=== PATIENT | male | born 1950 | race Native Hawaiian/Other Pacific Islander ===

== ENCOUNTER 2016-10-28 09:08 | Emergency (ER) | payer MEDICARE ==
[~2016-10-28] VITALS: Ht 152.4 cm; Wt 100.0 kg
[~2016-10-28 09:08] MED LIST: ALFU10TA2 PO; ATEN50TA PO; CARD240C6 PO; FINA5TAB2 PO; LISI40TA PO
[2016-10-28 09:09] VITALS: BP 224/106; PULSE 68; RESP 16; TEMP 98.8; O2SAT 97
[2016-10-28 09:31] VITALS: BP_SYST 199; BP_SYST 223; BP_DIAS 101; BP_DIAS 109; PULSE 85
[2016-10-28] MEDS ORDERED: DUTA1CAP2 PO (09:39)
[2016-10-28] MEDS ORDERED: TAMS0.4C4 PO (09:39)
[2016-10-28] MEDS ORDERED: cloNIDine HCL 0.2 MG TAB PO ONE (09:45)
--- NOTE | 2016-10-28 09:48 | PD ---
HPI Chief Complaint: Hypertension Time Seen by Provider: 09:29 Travel History International Travel<30 days: No Contact w/Intl Traveler<30days: No Traveled to known affect area: No History of Present Illness HPI This patient has history of hypertension. He says that his pressure is usually around 130s over 70s on his combination of lisinopril 40 daily and atenolol 50 daily. He is compliant with medication. He took them this morning at 7 AM. However over the last one week his pressures have been running high. 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 mejia. Blood pressure today on arrival was 224 systolic. He does not have any chest pain or headache. He feels well but is worried about this blood pressure. Symptoms severity is mild. No alleviating factors. Duration one week PFSH Past Medical History Cardiovascular Problems: Yes (dialated assending aorta) High Cholesterol: Yes Chest Pain: Yes (PALPATATIONS) Diminished Hearing: Yes (LEFT [place]) Genitourinary: Yes (ENLARGED PROSTATE) Hypertension: Yes Triglycerides - High: Yes Tetanus Vaccination: < 5 Years ?: Not Past Surgical History Ear Surgery: Yes (PERFORATED EAR DRUM) Social History Alcohol Use: No Tobacco Use: No Substance Use: No Allergies-Medications (Allergen,Severity, Reaction): Uncoded Allergies: STEROIDS (Adverse Reaction, Mild, HEARTBURN , 01/29/16) Reported Meds & Prescriptions Reported Meds & Active Scripts Active Reported Tamsulosin (Tamsulosin HCl) 0.4 Mg Cap 0.4 Mg PO BID Dutasteride 0.5 Mg Cap 0.5 Mg PO DAILY Atenolol 50 Mg Tab 50 Mg PO DAILY Lisinopril 40 Mg Tab 40 Mg PO DAILY Review of Systems General / Constitutional: No: Fever Eyes: No: Visual changes HENT: No: Headaches Cardiovascular: No: Chest Pain or Discomfort Respiratory: No: Shortness of Breath Gastrointestinal: No: Abdominal Pain Genitourinary: No: Dysuria Musculoskeletal: No: Pain Skin: No Rash Neurologic: No: Weakness Psychiatric: No: Depression Endocrine: No: Polydipsia Hematologic/Lymphatic: No: Easy Bruising Physical Exam Narrative GENERAL: Well-nourished, well-developed patient in no apparent distress. SKIN: Focused skin assessment reveals no rash and nodules. Skin is Warm and dry. HEAD: Atraumatic. Normocephalic. EYES: Pupils equal and round. No scleral icterus. No injection or drainage. ENT: No nasal bleeding or discharge. Mucous membranes pink and moist. NECK: Trachea midline. No JVD. CARDIOVASCULAR: Regular rate and rhythm. No murmur appreciated. RESPIRATORY: No accessory muscle use. Clear to auscultation. Breath sounds equal bilaterally. GASTROINTESTINAL: Abdomen soft, non-tender, nondistended. Hepatic and splenic margins not palpable. MUSCULOSKELETAL: No obvious deformities. No clubbing. No cyanosis. No edema. NEUROLOGICAL: Awake and alert. No obvious cranial nerve deficits. Motor grossly within normal limits. Normal speech. PSYCHIATRIC: Appropriate mood and affect; insight and judgment normal. Data Data Last Documented VS Vital Signs Date Time Temp Pulse Resp B/P (MAP) Pulse Ox O2 Delivery O2 Flow Rate FiO2 10/28/16 10:06 78 161/89 (113) 10/28/16 09:09 98.8 16 97 Room Air Orders Orders Clonidine (Catapres) (10/28/16 09:45) [facility] Medical Decision Making Medical Screen Exam Complete: Yes Emergency Medical Condition: Yes Medical Record Reviewed: Yes Differential Diagnosis Accelerated hypertension, hypertensive urgency, aortic aneurysm Narrative Course I have reviewed the patient's electronic medical record. Given his excessive blood pressure now with history of aneurysm of 4.7 cm, I gave him a dose of clonidine and will observe him and reassess pressure. He is neurologically intact. He's not had any symptoms attributable to intracranial hemorrhage or aneurysm problem. Blood pressure recheck is 160 systolic He will check and record daily I advised him to call his physician when he gets home to see if they recommend any medication changes Diagnosis Primary Impression: Accelerated hypertension Additional Impression: Thoracic aortic aneurysm without rupture Additional Instructions: The patient was advised to follow up with their physician and return if they worsen. Check and record blood pressure daily Med/Other Pt SpecificInfo: Other Disposition: DISCHARGE HOME Condition: Stable Med Garrido MD Oct 28, 2016 09:48
[2016-10-28 10:06] VITALS: BP 161/89; PULSE 78
== END 2016-10-28 10:37 | disposition home or self-care (01) ==
LOC: NEPD 09:08
DX: I10 Essential (primary) hypertension (principal); I71.2 Thoracic aortic aneurysm, without rupture; E78.00 Pure hypercholesterolemia, unspecified
CPT/HCPCS: 99283

== ENCOUNTER 2016-12-15 14:36 | Emergency (ER) | payer MEDICARE ==
[~2016-12-15] VITALS: Ht 180.3 cm; Wt 101.0 kg
[~2016-12-15 14:36] MED LIST changes: -ALFU10TA2 PO; -CARD240C6 PO; +DUTA1CAP2 PO; -FINA5TAB2 PO; +TAMS0.4C4 PO
[2016-12-15 14:57] VITALS: BP 116/76; PULSE 158; RESP 17; TEMP 97.7; O2SAT 98
[2016-12-15 14:59] VITALS: PULSE 152; RESP 18; O2SAT 97
[2016-12-15] MEDS ORDERED: SODIUM CHLORIDE 0.9% FLUSH 10 ML FLUSH IVF PRN (15:00)
[2016-12-15] MEDS ORDERED: SODIUM CHLOR 0.9% 1000 ML INJ 1,000 ML IV ONE ×2 (15:00→16:45)
[2016-12-15] MEDS ORDERED: ADENOSINE IV SOLN 3 MG/ML 2 ML VIAL IV PUSH ONE ×2 (15:00→16:45)
--- NOTE | 2016-12-15 15:13 | PD ---
HPI Chief Complaint: SVT Time Seen by Provider: 15:00 Travel History International Travel<30 days: No Contact w/Intl Traveler<30days: No History of Present Illness HPI Patient is a 66-year-old male with history of dilated aortic valve, hypertension , hyperlipidemia, SVT, presents to emergency room for evaluation of palpitations. Patient reports that he was sitting at his desk around 11 AM today when all of a sudden his heart racing. Patient reports that the last time he felt this, he was in a tachycardic rhythm, reports that he went to an emergency room and he was given medications that help with the symptoms. Patient reports that he does follow-up with Dr. Hayes Gray with cardiology. COUNTS INCLUDE 234 BEDS AT [facility] Past Medical History Cardiovascular Problems: Yes (dialated assending aorta) High Cholesterol: Yes Chest Pain: Yes (PALPATATIONS) Diminished Hearing: Yes ([place]) Genitourinary: Yes (ENLARGED PROSTATE) Hypertension: Yes Triglycerides - High: Yes Past Surgical History Ear Surgery: Yes (PERFORATED EAR DRUM) Social History Alcohol Use: No Tobacco Use: No Substance Use: No Allergies-Medications (Allergen,Severity, Reaction): Coded Allergies: No Known Allergies (Unverified , 12/15/16) Reported Meds & Prescriptions Reported Meds & Active Scripts Active Reported Alfuzosin ER 24 HR 10 Mg Tab 10 Mg PO DAILY Amlodipine (Amlodipine Besylate) 10 Mg Tab 10 Mg PO DAILY Tamsulosin (Tamsulosin HCl) 0.4 Mg Cap 0.4 Mg PO BID Dutasteride 0.5 Mg Cap 0.5 Mg PO DAILY Atenolol 50 Mg Tab 50 Mg PO DAILY Lisinopril 40 Mg Tab 40 Mg PO DAILY Review of Systems General / Constitutional: No: Fever Eyes: No: Visual changes HENT: No: Headaches Cardiovascular: Positive: Palpitations, Tachycardia, No: Chest Pain or Discomfort Respiratory: No: Shortness of Breath Gastrointestinal: No: Abdominal Pain Genitourinary: No: Dysuria Musculoskeletal: No: Pain Skin: No Rash Neurologic: No: Weakness Psychiatric: No: Depression Endocrine: No: Polydipsia Hematologic/Lymphatic: No: Easy Bruising Physical Exam Narrative GENERAL: Moderate distress SKIN: Focused skin assessment warm/dry. HEAD: Atraumatic. Normocephalic. EYES: Pupils equal and round. No scleral icterus. No injection or drainage. ENT: No nasal bleeding or discharge. Mucous membranes pink and moist. NECK: Trachea midline. No JVD. CARDIOVASCULAR: Tachycardic. No murmur appreciated. RESPIRATORY: No accessory muscle use. Clear to auscultation. Breath sounds equal bilaterally. GASTROINTESTINAL: Abdomen soft, non-tender, nondistended. Hepatic and splenic margins not palpable. MUSCULOSKELETAL: No obvious deformities. No clubbing. No cyanosis. No edema. NEUROLOGICAL: Awake and alert. No obvious cranial nerve deficits. Motor grossly within normal limits. Normal speech. PSYCHIATRIC: Appropriate mood and affect; insight and judgment normal. Data Data Last Documented VS Vital Signs Date Time Temp Pulse Resp B/P (MAP) Pulse Ox O2 Delivery O2 Flow Rate FiO2 12/15/16 17:37 89 17 140/86 (104) 98 Nasal Cannula 2.00 12/15/16 15:30 97.8 Orders Orders Electrocardiogram (12/15/16 14:59) B-Type Natriuretic Peptide (12/15/16 14:59) Ckmb (Isoenzyme) Profile (12/15/16 14:59) Complete Blood Count With Diff (12/15/16 14:59) Comprehensive Metabolic Panel (12/15/16 14:59) Magnesium (Mg) (12/15/16 14:59) Prothrombin Time / Inr (Pt) (12/15/16 14:59) Act Partial Throm Time (Ptt) (12/15/16 14:59) Troponin I (12/15/16 14:59) Chest, Single Ap (12/15/16 14:59) Ecg Monitoring (12/15/16 14:59) Iv Access Insert/Monitor (12/15/16 14:59) Oximetry (12/15/16 14:59) Sodium Chloride 0.9% Flush (Ns Flush) (12/15/16 15:00) Sodium Chlor 0.9% 1000 Ml Inj (Ns 1000 M (12/15/16 15:00) Adenosine Inj (Adenocard Inj) (12/15/16 15:00) Adenosine Inj (Adenocard Inj) (12/15/16 16:45) Sodium Chlor 0.9% 1000 Ml Inj (Ns 1000 M (12/15/16 16:45) Aspirin Chew (Aspirin Chew) (12/15/16 16:45) Electrocardiogram (10/9/17 ) Sodium Chlor 0.9% 1000 Ml Inj (Ns 1000 M (12/15/16 17:45) Labs Laboratory Tests Test 12/15/16 15:10 White Blood Count 11.2 TH/MM3 Red Blood Count 5.21 MIL/MM3 Hemoglobin 16.0 GM/DL Hematocrit 47.8 % Mean Corpuscular Volume 91.7 FL Mean Corpuscular Hemoglobin 30.7 PG Mean Corpuscular Hemoglobin Concent 33.5 % Red Cell Distribution Width 13.1 % Platelet Count 247 TH/MM3 Mean Platelet Volume 9.2 FL Neutrophils (%) (Auto) 59.0 % Lymphocytes (%) (Auto) 30.5 % Monocytes (%) (Auto) 9.2 % Eosinophils (%) (Auto) 0.9 % Basophils (%) (Auto) 0.4 % Neutrophils # (Auto) 6.6 TH/MM3 Lymphocytes # (Auto) 3.4 TH/MM3 Monocytes # (Auto) 1.0 TH/MM3 Eosinophils # (Auto) 0.1 TH/MM3 Basophils # (Auto) 0.1 TH/MM3 CBC Comment DIFF FINAL Differential Comment Prothrombin Time 12.0 SEC Prothromb Time International Ratio 1.1 RATIO Activated Partial Thromboplast Time 27.3 SEC Blood Urea Nitrogen 32 MG/DL Creatinine 1.36 MG/DL Random Glucose 109 MG/DL Total Protein 7.8 GM/DL Albumin 3.8 GM/DL Calcium Level 9.1 MG/DL Magnesium Level 2.2 MG/DL Alkaline Phosphatase 30 U/L Aspartate Amino Transf (AST/SGOT) 14 U/L Alanine Aminotransferase (ALT/SGPT) 25 U/L Total Bilirubin 0.4 MG/DL Sodium Level 142 MEQ/L Potassium Level 3.9 MEQ/L Chloride Level 105 MEQ/L Carbon Dioxide Level 28.4 MEQ/L Anion Gap 9 MEQ/L Estimat Glomerular Filtration Rate 52 ML/MIN Total Creatine Kinase 87 U/L Troponin I 0.05 NG/ML B-Type Natriuretic Peptide 66 PG/ML MDM Medical Decision Making Medical Screen Exam Complete: Yes Emergency Medical Condition: Yes Medical Record Reviewed: Yes Interpretation(s) EKG at 1442: SVT at 156 bpm, QT/QTc 271/359 Differential Diagnosis Differential includes SVT, arrhythmia, electrolyte abnormality Narrative Course 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 He was found to be an SVT with a heart rate in the 160s. Patient was given adenosine 6mg which he responded to and went back to a NSR. Shortly thereafter, patient went back into an SVT rhythm with a HR of 150's, patient was given adenosine 12 mg which converted back into NSR. Vital Signs Date Time Temp Pulse Resp B/P (MAP) Pulse Ox O2 Delivery O2 Flow Rate FiO2 12/15/16 15:30 97.8 156 17 134/74 (94) 98 Room Air 12/15/16 14:59 152 18 97 Room Air 12/15/16 14:57 97.7 158 17 116/76 (89) 98 Laboratory Tests Test 12/15/16 15:10 White Blood Count 11.2 TH/MM3 (4.0-11.0) Red Blood Count 5.21 MIL/MM3 (4.50-5.90) Hemoglobin 16.0 GM/DL (13.0-17.0) Hematocrit 47.8 % (39.0-51.0) Mean Corpuscular Volume 91.7 FL (80.0-100.0) Mean Corpuscular Hemoglobin 30.7 PG (27.0-34.0) Mean Corpuscular Hemoglobin Concent 33.5 % (32.0-36.0) Red Cell Distribution Width 13.1 % (11.6-17.2) Platelet Count 247 TH/MM3 (150-450) Mean Platelet Volume 9.2 FL (7.0-11.0) Neutrophils (%) (Auto) 59.0 % (16.0-70.0) Lymphocytes (%) (Auto) 30.5 % (9.0-44.0) Monocytes (%) (Auto) 9.2 % (0.0-8.0) Eosinophils (%) (Auto) 0.9 % (0.0-4.0) Basophils (%) (Auto) 0.4 % (0.0-2.0) Neutrophils # (Auto) 6.6 TH/MM3 (1.8-7.7) Lymphocytes # (Auto) 3.4 TH/MM3 (1.0-4.8) Monocytes # (Auto) 1.0 TH/MM3 (0-0.9) Eosinophils # (Auto) 0.1 TH/MM3 (0-0.4) Basophils # (Auto) 0.1 TH/MM3 (0-0.2) CBC Comment DIFF FINAL Differential Comment Prothrombin Time 12.0 SEC (9.8-11.6) Prothromb Time International Ratio 1.1 RATIO Activated Partial Thromboplast Time 27.3 SEC (24.3-30.1) Blood Urea Nitrogen 32 MG/DL (7-18) Creatinine 1.36 MG/DL (0.60-1.30) Random Glucose 109 MG/DL (74-106) Total Protein 7.8 GM/DL (6.4-8.2) Albumin 3.8 GM/DL (3.4-5.0) Calcium Level 9.1 MG/DL (8.5-10.1) Magnesium Level 2.2 MG/DL (1.5-2.5) Alkaline Phosphatase 30 U/L (45-117) Aspartate Amino Transf (AST/SGOT) 14 U/L (15-37) Alanine Aminotransferase (ALT/SGPT) 25 U/L (12-78) Total Bilirubin 0.4 MG/DL (0.2-1.0) Sodium Level 142 MEQ/L (136-145) Potassium Level 3.9 MEQ/L (3.5-5.1) Chloride Level 105 MEQ/L (98-107) Carbon Dioxide Level 28.4 MEQ/L (21.0-32.0) Anion Gap 9 MEQ/L (5-15) Estimat Glomerular Filtration Rate 52 ML/MIN (>89) Total Creatine Kinase 87 U/L (39-308) Troponin I 0.05 NG/ML (0.02-0.05) B-Type Natriuretic Peptide 66 PG/ML (0-100) Discussed need for admission to the hospital as was given adenosine twice, understands that he will require cardiac monitoring AMA: The risks of leaving against medical advice without further evaluation treatment were discussed with the patient. These risks include cardiac dysfunction, cardiac dysrhythmia, possible heart attack, possible stroke or . The patient indicated understanding of these risks and appeared to have the capacity to make this decision. Patient understands that he may return to the emergency room at any time for reevaluation of his symptoms. He will follow-up with Dr. mejia as soon as possible Critical Care Narrative Aggregate critical care time was 30 minutes. Time to perform other separately billable procedures was not included in the critical care time. My time did not include minutes spent treating any other patients simultaneously or on activities that did not directly contribute to the patient's treatment. The services I provided to this patient were to treat and/or prevent clinically significant deterioration that could result in: , decompensation, deterioration I provided critical care services requiring my management, as noted below: Chart data review, documentation time, medication orders and management, vital sign assessments/reviewing monitor data, ordering and reviewing lab tests, ordering and interpreting/reviewing x-rays and diagnostic studies, care of the patient and discussion of the patient with the admitting physicians. Diagnosis Primary Impression: SVT (supraventricular tachycardia) Additional Impression: Left against medical advice Admitting Information Admitting Physician Requests: Observation Patient Instructions: General Instructions Additional Instructions: You are leaving the hospital against medical advice, he may return to the emergency room at any time should he desire a medical workup Please follow-up with your light bulb assembler as well as your primary care doctor as soon as possible Disposition: 07 AGAINST MEDICAL ADVICE Condition: Serious Tracey Alfaro DO Dec 15, 2016 15:13
--- NOTE | 2016-12-15 15:27 | RADRPT ---
EXAM DATE/TIME: 12/15/2016 15:13 [facility] COMPARISON: CHEST SINGLE AP, February 15, 2016, 19:44. INDICATIONS : Chest pain. MEDICAL HISTORY : Hypertension. Hypercholesterolemia. Hyperlipidemia. SURGICAL HISTORY : None. ENCOUNTER: Initial ACUITY: 1 day PAIN SCORE: 7/10 LOCATION: Left upper chest FINDINGS: A single view of the chest demonstrates the lungs to be symmetrically aerated without evidence of mas s, infiltrate or effusion. The cardiomediastinal contours are unremarkable. Osseous structures are intact. CONCLUSION: 1. No acute cardiopulmonary findings. Bhanu Kaufman MD on December 15, 2016 at 15:25 Board Certified Radiologist. This report was verified electronically.
[2016-12-15 15:30] VITALS: BP 134/74; PULSE 156; RESP 17; TEMP 97.8; O2SAT 98
[2016-12-15 15:45] LABS: AUTOMATED NEUTROPHIL # 6.6 TH/MM3 (1.8-7.7); BASOPHIL # 0.1 TH/MM3 (0-0.2); BASOPHIL % 0.4 % (0.0-2.0); EOSINOPHIL # 0.1 TH/MM3 (0-0.4); EOSINOPHIL % 0.9 % (0.0-4.0); HEMATOCRIT 47.8 % (39.0-51.0); HEMO FLAGS DIFF FINAL; LYMPH % 30.5 % (9.0-44.0); LYMPHOCYTE # 3.4 TH/MM3 (1.0-4.8); MEAN CELL VOLUME 91.7 FL (80.0-100.0); MEAN CORPUSCULAR HEMOGLOBIN 30.7 PG (27.0-34.0); MEAN CORPUSCULAR HGB CONC 33.5 % (32.0-36.0); MONO % 9.2 % (0.0-8.0); PLATELET COUNT 247 TH/MM3 (150-450); RED BLOOD COUNT 5.21 MIL/MM3 (4.50-5.90); RED CELL DISTRIBUTION WIDTH 13.1 % (11.6-17.2); WHITE BLOOD COUNT 11.2 TH/MM3 (4.0-11.0)
[2016-12-15 15:51] LABS: APTT (PATIENT) 27.3 SEC (24.3-30.1); INTERNATIONAL NORMALIZED RATIO 1.1 RATIO
[2016-12-15] MEDS ORDERED: ALFU10TA2 PO (16:06)
[2016-12-15] MEDS ORDERED: AMLO10TA2 PO (16:06)
[2016-12-15 16:07] LABS: ALT (GPT) 25 U/L (12-78); ANION GAP 9 MEQ/L (5-15); AST (GOT) 14 U/L (15-37); BICARBONATE 28.4 MEQ/L (21.0-32.0); BLOOD UREA NITROGEN 32 MG/DL (7-18); CHLORIDE 105 MEQ/L (98-107); GLOMERULAR FILTRATION RATE 52 ML/MIN (>89); MAGNESIUM 2.2 MG/DL (1.5-2.5); POTASSIUM 3.9 MEQ/L (3.5-5.1); SODIUM (NA) 142 MEQ/L (136-145)
[2016-12-15 16:10] LABS: ALKALINE PHOSPHATASE 30 U/L (45-117); TOTAL BILIRUBIN ADULT 0.4 MG/DL (0.2-1.0)
[2016-12-15 16:17] LABS: CREATINE KINASE 87 U/L (39-308)
[2016-12-15 16:45] VITALS: BP 134/73; PULSE 91; RESP 20; O2SAT 99
[2016-12-15] MEDS ORDERED: ASPIRIN 81 MG CHEW TAB CHEW ONE (16:45)
[2016-12-15 17:37] VITALS: BP 140/86; PULSE 89; RESP 17; O2SAT 98
[2016-12-15] MEDS ORDERED: SODIUM CHLOR 0.9% 1000 ML INJ 1,000 ML IV SCH (17:45)
--- NOTE | 2016-12-16 09:52 | EKG ---
Date Performed: 12/15/2016 Time Performed: 14:42:18 PTAGE: 66 years EKG: SUPRAVENTRICULAR TACHYCARDIA SEPTAL MYOCARDIAL INFARCTION ABNORMAL ECG PREVIOUS TRACING 02/15/16 Compared to the prior study, supraventricular tachycardia is new. Dif fuse ST segment depression is noted. DOCTOR: Dirk Gaitan Interpretating Date/Time 12/16/2016 09:52:35
--- NOTE | 2016-12-16 09:53 | EKG ---
Date Performed: 12/15/2016 Time Performed: 15:06:47 PTAGE: 66 years EKG: Sinus rhythm SEPTAL MYOCARDIAL INFARCTION ABNORMAL ECG PREVIOUS TRACING : 02/15/2016 19.26 Compared to the prior study, sinus rhythm has replaced supr aventricular tachycardia. ST segment depression has resolved. DOCTOR: Dirk Gaitan Interpretating Date/Time 12/16/2016 09:53:21
--- NOTE | 2016-12-16 09:56 | EKG ---
Date Performed: 12/15/2016 Time Performed: 16:50:20 PTAGE: 66 years EKG: Sinus rhythm WITH OCCASIONAL VENTRICULAR PREMATURE COMPLEXES SEPTAL MYOCARDIAL INFARCTION ABNORMAL ECG INTERPRETA TION BASED ON A DEFAULT AGE OF 40 YEARS PREVIOUS TRACING 12/15/16 Compared to the prior study, supraventricular tachycardia has r esolved. ST segment depression is no longer present. DOCTOR: Dirk Gaitan Interpretating Date/Time 12/16/2016 09:55:23
--- NOTE | 2016-12-16 09:56 | EKG ---
Date Performed: 12/15/2016 Time Performed: 16:30:41 PTAGE: 66 years EKG: Supraventricular tachycardia Diffuse ST segment depression SEPTAL MYOCARDIAL INFARCTION ABN ORMAL ECG PREVIOUS TRACING : 12/15/2016 15.06 Compared to prior study, supraventricular tachycardia has r ecurred. DOCTOR: Dirk Gaitan Interpretating Date/Time 12/16/2016 09:54:49
== END 2016-12-15 18:40 | disposition left against medical advice (07) ==
LOC: NEPC 14:36
DX: I47.1 Supraventricular tachycardia (principal); I10 Essential (primary) hypertension; Z79.899 Other long term (current) drug therapy
CPT/HCPCS: 71010; 80053; 82550; 83735; 83880; 84484; 85025; 85610; 85730; 93005; 96361; 96374; 96376; 99291; J0153; J7030

== ENCOUNTER 2016-12-22 16:25 | Inpatient (IN) | payer MEDICARE ==
[2016-12-22] VITALS (8 sets, daily range): BP systolic 119–145; BP diastolic 78–93; PULSE 68–152; RESP 16–18; TEMP 97.3–97.8; O2SAT 94–98
[~2016-12-22] VITALS: Ht 180.3 cm; Wt 100.9 kg
[~2016-12-22 16:25] MED LIST changes: +ALFU10TA2 PO; +AMLO10TA2 PO
[2016-12-22] MEDS ORDERED: SODIUM CHLORIDE 0.9% FLUSH 10 ML FLUSH IVF PRN (16:45)
[2016-12-22] MEDS ORDERED: SODIUM CHLOR 0.9% 1000 ML INJ 1,000 ML IV ONE ×2 (16:45→17:00)
[2016-12-22] MEDS ORDERED: DILTIAZEM HCL 25 MG/5 ML VIAL IV PUSH ONE (16:45)
--- NOTE | 2016-12-22 16:47 | PD ---
HPI Chief Complaint: Cardiac Complaint Time Seen by Provider: 16:31 Travel History International Travel<30 days: No Contact w/Intl Traveler<30days: No Traveled to known affect area: No History of Present Illness HPI Patient is a 66-year-old male with history of dilated aortic valve, hypertension , hyperlipidemia, SVT, presents to emergency room for evaluation of palpitations. Patient reports that he was sitting and resting today, when all of a sudden his heart racing. Patient reports onset of symptoms at 3pm this afternoon. Patient reports that he was seen in the ER last week with this and was given 2 rounds of adenosine for treatment of SVT. Patient left AMA and did not stay for admission to the hospital. He did follow up with his medical lab technician, Dr. Hayes Cifuentes, this week - reports that he was going to be referred to an patent law specialist. Patient denies any chest pain or shortness with this time. Reports that symptoms feel similar to when he has had SVT in the past. PFSH Past Medical History Cardiovascular Problems: Yes High Cholesterol: Yes Chest Pain: Yes (PALPATATIONS) Diminished Hearing: Yes (LEFT POARCH) Genitourinary: Yes (ENLARGED PROSTATE) Hypertension: Yes Triglycerides - High: Yes Past Surgical History Ear Surgery: Yes (PERFORATED EAR DRUM) Social History Alcohol Use: No Tobacco Use: No (QUIT 35 YEARS AGO) Substance Use: No Allergies-Medications (Allergen,Severity, Reaction): Coded Allergies: No Known Allergies (Unverified , 12/15/16) Reported Meds & Prescriptions Reported Meds & Active Scripts Active Reported Hydrochlorothiazide 25 Mg Tab 25 Mg PO DAILY Metoprolol Tartrate 50 Mg Tab 50 Mg PO DAILY Tamsulosin (Tamsulosin HCl) 0.4 Mg Cap 0.4 Mg PO BID Dutasteride 0.5 Mg Cap 0.5 Mg PO DAILY Lisinopril 40 Mg Tab 40 Mg PO DAILY Review of Systems General / Constitutional: No: Fever Eyes: No: Visual changes HENT: No: Headaches Cardiovascular: Positive: Palpitations, Irregular Rhythm, Tachycardia, No: Chest Pain or Discomfort Respiratory: No: Shortness of Breath Gastrointestinal: No: Abdominal Pain Genitourinary: No: Dysuria Musculoskeletal: No: Pain Skin: No Rash Neurologic: No: Weakness Psychiatric: No: Depression Endocrine: No: Polydipsia Hematologic/Lymphatic: No: Easy Bruising Physical Exam Narrative GENERAL: Moderate distress SKIN: Focused skin assessment warm/dry. HEAD: Atraumatic. Normocephalic. EYES: Pupils equal and round. No scleral icterus. No injection or drainage. ENT: No nasal bleeding or discharge. Mucous membranes pink and moist. NECK: Trachea midline. No JVD. CARDIOVASCULAR: Tachycardic. No murmur appreciated. RESPIRATORY: No accessory muscle use. Clear to auscultation. Breath sounds equal bilaterally. GASTROINTESTINAL: Abdomen soft, non-tender, nondistended. Hepatic and splenic margins not palpable. MUSCULOSKELETAL: No obvious deformities. No clubbing. No cyanosis. No edema. NEUROLOGICAL: Awake and alert. No obvious cranial nerve deficits. Motor grossly within normal limits. Normal speech. PSYCHIATRIC: Appropriate mood and affect; insight and judgment normal. Data Data Last Documented VS Vital Signs Date Time Temp Pulse Resp B/P (MAP) Pulse Ox O2 Delivery O2 Flow Rate FiO2 12/22/16 17:14 84 18 119/80 (93) 95 Room Air 12/22/16 16:34 97.8 Orders Orders Diltiazem Inj (Cardizem Inj) (12/22/16 16:45) Electrocardiogram (12/22/16 16:37) Basic Metabolic Panel (Bmp) (12/22/16 16:37) Ckmb (Isoenzyme) Profile (12/22/16 16:37) Complete Blood Count With Diff (12/22/16 16:37) Magnesium (Mg) (12/22/16 16:37) Prothrombin Time / Inr (Pt) (12/22/16 16:37) Act Partial Throm Time (Ptt) (12/22/16 16:37) Troponin I (12/22/16 16:37) Chest, Single Ap (12/22/16 16:37) Ecg Monitoring (12/22/16 16:37) Iv Access Insert/Monitor (12/22/16 16:37) Oximetry (12/22/16 16:37) Sodium Chloride 0.9% Flush (Ns Flush) (12/22/16 16:45) Sodium Chlor 0.9% 1000 Ml Inj (Ns 1000 M (12/22/16 16:45) Sodium Chlor 0.9% 1000 Ml Inj (Ns 1000 M (12/22/16 17:00) Adenosine Inj (Adenocard Inj) (12/22/16 17:00) Electrocardiogram (12/22/16 ) Aspirin (Aspirin) (12/22/16 17:45) Labs Laboratory Tests Test 12/22/16 16:40 White Blood Count 10.1 TH/MM3 Red Blood Count 5.19 MIL/MM3 Hemoglobin 15.9 GM/DL Hematocrit 46.5 % Mean Corpuscular Volume 89.7 FL Mean Corpuscular Hemoglobin 30.6 PG Mean Corpuscular Hemoglobin Concent 34.1 % Red Cell Distribution Width 12.4 % Platelet Count 247 TH/MM3 Mean Platelet Volume 9.1 FL Neutrophils (%) (Auto) 61.0 % Lymphocytes (%) (Auto) 29.8 % Monocytes (%) (Auto) 7.9 % Eosinophils (%) (Auto) 0.5 % Basophils (%) (Auto) 0.8 % Neutrophils # (Auto) 6.1 TH/MM3 Lymphocytes # (Auto) 3.0 TH/MM3 Monocytes # (Auto) 0.8 TH/MM3 Eosinophils # (Auto) 0.1 TH/MM3 Basophils # (Auto) 0.1 TH/MM3 CBC Comment DIFF FINAL Differential Comment Prothrombin Time 11.1 SEC Prothromb Time International Ratio 1.0 RATIO Activated Partial Thromboplast Time 26.4 SEC Blood Urea Nitrogen 28 MG/DL Creatinine 1.70 MG/DL Random Glucose 109 MG/DL Calcium Level 9.2 MG/DL Magnesium Level 2.7 MG/DL Sodium Level 141 MEQ/L Potassium Level 3.7 MEQ/L Chloride Level 104 MEQ/L Carbon Dioxide Level 27.5 MEQ/L Anion Gap 10 MEQ/L Estimat Glomerular Filtration Rate 41 ML/MIN Total Creatine Kinase 91 U/L Troponin I 0.08 NG/ML MDM Medical Decision Making Medical Screen Exam Complete: Yes Emergency Medical Condition: Yes Medical Record Reviewed: Yes Interpretation(s) Vital Signs Date Time Temp Pulse Resp B/P (MAP) Pulse Ox O2 Delivery O2 Flow Rate FiO2 12/22/16 16:34 97.8 152 18 123/78 (93) 96 Differential Diagnosis Differential includes SVT versus A. Flutter, arrhythmia, electrolyte abnormality Narrative Course 66-year-old male who presents to emergency room for evaluation of palpitations. Patient was placed on a veterinarian helper upon arrival to emergency room, he was found to have SVT. IV adenosine was ordered for patient. Laboratory studies including cardiac enzyme was ordered. Patient converted to NSR after 6mg of IV adenosine given. patient reports that he has an appointment with Dr. Cifuentes tomorrow for a Holter monitor EKG after adenosine 6mg IV: NSR at 86bpm, qt/qtc: 345/388, no acute st or t wave changes Vital Signs Date Time Temp Pulse Resp B/P (MAP) Pulse Ox O2 Delivery O2 Flow Rate FiO2 12/22/16 17:14 84 18 119/80 (93) 95 Room Air 12/22/16 17:07 18 98 Room Air 12/22/16 16:34 97.8 152 18 123/78 (93) 96 Laboratory Tests Test 12/22/16 16:40 White Blood Count 10.1 TH/MM3 (4.0-11.0) Red Blood Count 5.19 MIL/MM3 (4.50-5.90) Hemoglobin 15.9 GM/DL (13.0-17.0) Hematocrit 46.5 % (39.0-51.0) Mean Corpuscular Volume 89.7 FL (80.0-100.0) Mean Corpuscular Hemoglobin 30.6 PG (27.0-34.0) Mean Corpuscular Hemoglobin Concent 34.1 % (32.0-36.0) Red Cell Distribution Width 12.4 % (11.6-17.2) Platelet Count 247 TH/MM3 (150-450) Mean Platelet Volume 9.1 FL (7.0-11.0) Neutrophils (%) (Auto) 61.0 % (16.0-70.0) Lymphocytes (%) (Auto) 29.8 % (9.0-44.0) Monocytes (%) (Auto) 7.9 % (0.0-8.0) Eosinophils (%) (Auto) 0.5 % (0.0-4.0) Basophils (%) (Auto) 0.8 % (0.0-2.0) Neutrophils # (Auto) 6.1 TH/MM3 (1.8-7.7) Lymphocytes # (Auto) 3.0 TH/MM3 (1.0-4.8) Monocytes # (Auto) 0.8 TH/MM3 (0-0.9) Eosinophils # (Auto) 0.1 TH/MM3 (0-0.4) Basophils # (Auto) 0.1 TH/MM3 (0-0.2) CBC Comment DIFF FINAL Differential Comment Prothrombin Time 11.1 SEC (9.8-11.6) Prothromb Time International Ratio 1.0 RATIO Activated Partial Thromboplast Time 26.4 SEC (24.3-30.1) Blood Urea Nitrogen 28 MG/DL (7-18) Creatinine 1.70 MG/DL (0.60-1.30) Random Glucose 109 MG/DL (74-106) Calcium Level 9.2 MG/DL (8.5-10.1) Magnesium Level 2.7 MG/DL (1.5-2.5) Sodium Level 141 MEQ/L (136-145) Potassium Level 3.7 MEQ/L (3.5-5.1) Chloride Level 104 MEQ/L (98-107) Carbon Dioxide Level 27.5 MEQ/L (21.0-32.0) Anion Gap 10 MEQ/L (5-15) Estimat Glomerular Filtration Rate 41 ML/MIN (>89) Total Creatine Kinase 91 U/L (39-308) Troponin I 0.08 NG/ML (0.02-0.05) Patient with a troponin 0.08 which is mildly elevated Cr is also elevated from baseline. Patient was given aspirin, plan to observe in the hospital for serial troponin' s as well as for IV hydration Case reviewed with Dr. Arteaga who accepts pt to service Diagnosis Primary Impression: SVT (supraventricular tachycardia) Additional Impression: Renal insufficiency Admitting Information Admitting Physician Requests: Observation Tracey Alfaro DO Dec 22, 2016 16:47
[2016-12-22 16:52] LABS: AUTOMATED NEUTROPHIL # 6.1 TH/MM3 (1.8-7.7); BASOPHIL # 0.1 TH/MM3 (0-0.2); BASOPHIL % 0.8 % (0.0-2.0); EOSINOPHIL # 0.1 TH/MM3 (0-0.4); EOSINOPHIL % 0.5 % (0.0-4.0); HEMATOCRIT 46.5 % (39.0-51.0); HEMO FLAGS DIFF FINAL; LYMPH % 29.8 % (9.0-44.0); MEAN CELL VOLUME 89.7 FL (80.0-100.0); MEAN CORPUSCULAR HEMOGLOBIN 30.6 PG (27.0-34.0); MEAN CORPUSCULAR HGB CONC 34.1 % (32.0-36.0); MONO % 7.9 % (0.0-8.0); PLATELET COUNT 247 TH/MM3 (150-450); RED BLOOD COUNT 5.19 MIL/MM3 (4.50-5.90); RED CELL DISTRIBUTION WIDTH 12.4 % (11.6-17.2); WHITE BLOOD COUNT 10.1 TH/MM3 (4.0-11.0)
[2016-12-22] MEDS ORDERED: ADENOSINE IV SOLN 3 MG/ML 2 ML VIAL IV PUSH ONE (17:00)
[2016-12-22 17:01] LABS: POTASSIUM 3.7 MEQ/L (3.5-5.1)
[2016-12-22] MEDS ORDERED: METO50TA PO (17:02)
[2016-12-22] MEDS ORDERED: HYDR25TA5 PO (17:02)
[2016-12-22 17:04] LABS: BICARBONATE 27.5 MEQ/L (21.0-32.0); MAGNESIUM 2.7 MG/DL (1.5-2.5)
[2016-12-22 17:05] LABS: APTT (PATIENT) 26.4 SEC (24.3-30.1); PROTHROMBIN TIME - PATIENT 11.1 SEC (9.8-11.6)
[2016-12-22] MEDS ORDERED: ASPIRIN 325 MG TAB PO ONE (17:45)
[2016-12-22] MEDS ORDERED: IOHEXOL 350 MG/ML 50 ML BTL (for Cath Lab) OTHER ONE (17:48)
--- NOTE | 2016-12-22 17:49 | RADRPT ---
EXAM DATE/TIME: 12/22/2016 16:48 [facility] COMPARISON: CHEST SINGLE AP, February 15, 2016, 19:44. CHEST SINGLE AP, December 15, 2016, 15:13. INDICATIONS : Palpitations. MEDICAL HISTORY : Hypertension. Hypercholesterolemia. Hyperlipidemia. SURGICAL HISTORY : None. ENCOUNTER: Initial ACUITY: 1 day PAIN SCORE: 3/10 LOCATION: Bilateral chest FINDINGS: Portable AP view of the chest demonstrates a normal-sized cardiac silhouette with calcification of th e aorta. No effusion, consolidation, or pneumothorax is identified. [place] the right hemithorax is a st able appearance. The bones and soft tissues demonstrate no acute abnormality. CONCLUSION: No acute cardiopulmonary abnormality is identified. Michael Daley MD on December 22, 2016 at 17:46 Board Certified Radiologist. This report was verified electronically.
[2016-12-22] MEDS ORDERED: MAGNESIUM HYDROXIDE SUSP 30 ML CUP PO PRN (18:15)
[2016-12-22] MEDS ORDERED: BISACODYL 10 MG SUPP RECTAL PRN (18:15)
[2016-12-22] MEDS ORDERED: cloNIDine HCL 0.1 MG TAB PO PRN (18:15)
[2016-12-22] MEDS ORDERED: ONDANSETRON HCL 4 MG/2 ML VIAL IVP PRN (18:15)
[2016-12-22] MEDS ORDERED: NALOXONE HCL 0.4 MG/ML AMP IV PUSH PRN (18:15)
[2016-12-22] MEDS ORDERED: ACETAMINOPHEN 325 MG TAB PO PRN (18:15)
[2016-12-22] MEDS ORDERED: SENNOSIDES 8.6 MG TAB PO PRN (18:15)
[2016-12-22] MEDS ORDERED: SODIUM CHLORIDE 0.9% FLUSH 10 ML FLUSH IV FLUSH PRN (18:15)
--- NOTE | 2016-12-22 18:25 | HHI.HP ---
[facility] Arnav Dutton , R3 MD Robert Admission Diagnosis SVT, renal insuffiency Diagnoses: Chief Complaint: Dizziness and palpitation Travel History International Travel<30 Days: No Contact w/Intl Traveler <30 Da: No Traveled to Known Affected Are: No History of Present Illness 66 years old Mediterranean [place] male with history of hypertension hyperlipidemia SVT presented to the ED with an episode of palpitation and lightheadedness but no chest pain no short of breath, patient stated he was resting the whole day and also in his heart start racing. Symptoms started 3 PM this afternoon. She reported he was seen in ER last week for the same problem he was given 2 rounds of adenosine. At that time patient left AMA and did not stay for admission. Patient did follow up with his manager transmission Dr. mejia and was planned to see him tomorrow for a Holter monitor. She has stated he had 2-D echo 3 weeks ago which only showed dilated ascending aorta. Currently patient is chest pain-free no palpitation heart rate is controlled he was given 2 doses of adenosine in ED Review of Systems All systems reviewed and was positive for what is mentioned in history of present illness otherwise negative Past Family Social History Past Medical History Operative hyperlipidemia as DVT Past Surgical History Eardrum perforation Allergies: Coded Allergies: No Known Allergies (Unverified , 12/15/16) Family History Mother had SVT as well Social History Quit smoking 35 years ago no alcohol or illicit drug abuse Physical Exam Vital Signs Vital Signs Date Time Temp Pulse Resp B/P (MAP) Pulse Ox O2 Delivery O2 Flow Rate FiO2 12/22/16 17:50 74 16 132/89 (103) 94 Room Air 12/22/16 17:14 84 18 119/80 (93) 95 Room Air 12/22/16 17:07 18 98 Room Air 12/22/16 16:34 97.8 152 18 123/78 (93) 96 Physical Exam GENERAL: This is a well-nourished, well-developed patient, in no apparent distress. SKIN: No rashes, warm and dry HEAD: Atraumatic. Normocephalic. EYES: Pupils equal round and reactive. Extraocular motions intact. No scleral icterus. ENT: Nose without bleeding, or drainage, Airway patent. NECK: Trachea midline. Supple CARDIOVASCULAR: Irregularly irregular rate and rhythm without murmurs, gallops, or rubs. RESPIRATORY: Fair air entry bilaterally. No wheezes, rales, or rhonchi. GASTROINTESTINAL: Abdomen soft, non-tender, nondistended. Positive bowel sounds MUSCULOSKELETAL: Extremities without clubbing, cyanosis, or edema. Pedal pulses appreciated NEUROLOGICAL: Awake and alert. Moves all extremity. Normal speech.no focal neurological deficit Laboratory Laboratory Tests Test 12/22/16 16:40 White Blood Count 10.1 Red Blood Count 5.19 Hemoglobin 15.9 Hematocrit 46.5 Mean Corpuscular Volume 89.7 Mean Corpuscular Hemoglobin 30.6 Mean Corpuscular Hemoglobin Concent 34.1 Red Cell Distribution Width 12.4 Platelet Count 247 Mean Platelet Volume 9.1 Neutrophils (%) (Auto) 61.0 Lymphocytes (%) (Auto) 29.8 Monocytes (%) (Auto) 7.9 Eosinophils (%) (Auto) 0.5 Basophils (%) (Auto) 0.8 Neutrophils # (Auto) 6.1 Lymphocytes # (Auto) 3.0 Monocytes # (Auto) 0.8 Eosinophils # (Auto) 0.1 Basophils # (Auto) 0.1 CBC Comment DIFF FINAL Differential Comment Prothrombin Time 11.1 Prothromb Time International Ratio 1.0 Activated Partial Thromboplast Time 26.4 Blood Urea Nitrogen 28 Creatinine 1.70 Random Glucose 109 Calcium Level 9.2 Magnesium Level 2.7 Sodium Level 141 Potassium Level 3.7 Chloride Level 104 Carbon Dioxide Level 27.5 Anion Gap 10 Estimat Glomerular Filtration Rate 41 Total Creatine Kinase 91 Troponin I 0.08 Result Diagram: 12/22/16 1640 12/22/16 1640 Imaging Last Impressions Chest X-Ray 12/22/16 1637 Signed Impressions: Service Date/Time: Thursday, December 22, 2016 16:48 - CONCLUSION: No acute cardiopulmonary abnormality is identified. Michael Daley MD EKG showed atrial flutter with rapid response and ST depression in multiple leads which was resolved in the later following EKG after adenosine Caprini VTE Risk Assessment Caprini VTE Risk Assessment: Mod/High Risk (score >= 2) Caprini Risk Assessment Model Point Value = 1 Point Value = 2 Point Value = 3 Point Value = 5 Age 41-60 Minor surgery BMI > 25 kg/m2 Swollen legs Varicose veins or History of unexplained or recurrent spontaneous Oral contraceptives or hormone replacement Sepsis (< 1 month) Serious lung disease, including pneumonia (< 1 month) Abnormal pulmonary function Acute myocardial infarction Congestive heart failure (< 1 month) History of inflammatory bowel disease Medical patient at bed rest Age 61-74 Arthroscopic surgery Major open surgery (> 45 min) Laparoscopic surgery (> 45 min) Malignancy Confined to bed (> 72 hours) Immobilizing plaster cast Central venous access Age >= 75 History of VTE Family history of VTE Factor V Leiden Prothrombin [id number] Lupus anticoagulant Anticardiolipin antibodies Elevated serum homocysteine Heparin-induced thrombocytopenia Other congenital or acquired thrombophilia Stroke (< 1 month) Elective arthroplasty Hip, pelvis, or leg fracture Acute spinal cord injury (< 1 month) Prophylaxis Regimen Total Risk Factor Score Risk Level Prophylaxis Regimen 0-1 Low Early ambulation 2 Moderate Order ONE of the following: *Sequential Compression Device (SCD) *Heparin 5000 units SQ BID 3-4 Higher Order ONE of the following medications: *Heparin 5000 units SQ TID *Enoxaparin/Lovenox 40 mg SQ daily (WT < 150 kg, CrCl > 30 mL/min) *Enoxaparin/Lovenox 30 mg SQ daily (WT < 150 kg, CrCl > 10-29 mL/min) *Enoxaparin/Lovenox 30 mg SQ BID (WT < 150 kg, CrCl > 30 mL/min) AND/OR *Sequential Compression Device (SCD) 5 or more Highest Order ONE of the following medications: *Heparin 5000 units SQ TID (Preferred with Epidurals) *Enoxaparin/Lovenox 40 mg SQ daily (WT < 150 kg, CrCl > 30 mL/min) *Enoxaparin/Lovenox 30 mg SQ daily (WT < 150 kg, CrCl > 10-29 mL/min) *Enoxaparin/Lovenox 30 mg SQ BID (WT < 150 kg, CrCl > 30 mL/min) AND *Sequential Compression Device (SCD) Assessment and Plan Assessment and Plan 66 years old male admitted with Atrial flutter with RVR/SVT>> improved after 2 doses of Indocin Hypertension Dilated ascending aorta Hyperlipidemia Mild dehydration, MILIND on CKD stage III DVT prophylaxis Plan: Admit for observation Cardiac telemetry Consult Dr. mejia CHADvasc score is 1 with hypertension, we need to report from 2-D echo about EF Hold lisinopril due to MILIND, replaced with Norvasc and clonidine Resume rest of medication Lopressor and statin Heparin for DVT prophylaxis Discussed Condition With Patient and his in ED physician Jamie Arteaga MD Dec 22, 2016 18:25
[2016-12-22] MEDS: HEPARIN SODIUM - SQ 10,000 UNITS/ML VIAL SQ SCH ×2 (18:50→22:00)
[2016-12-22] MEDS: DOCUSATE SODIUM 50 MG/SENNA 8.6 MG TAB PO SCH (21:00)
[2016-12-22] MEDS: TAMSULOSIN HCL 0.4 MG CAP PO SCH (23:01)
[2016-12-22] MEDS: SODIUM CHLORIDE 0.9% FLUSH 10 ML FLUSH IV FLUSH SCH (23:01)
[2016-12-23] VITALS (23 sets, daily range): BP systolic 110–156; BP diastolic 62–90; PULSE 55–70; RESP 16–24; TEMP 96.8–98.3; O2SAT 92–98
[2016-12-23] MEDS: HEPARIN SODIUM - SQ 10,000 UNITS/ML VIAL SQ SCH (05:08)
[2016-12-23 06:26] LABS: AUTOMATED NEUTROPHIL # 3.6 TH/MM3 (1.8-7.7); BASOPHIL # 0.1 TH/MM3 (0-0.2); EOSINOPHIL # 0.1 TH/MM3 (0-0.4); EOSINOPHIL % 1.3 % (0.0-4.0); HEMATOCRIT 40.2 % (39.0-51.0); HEMO FLAGS DIFF FINAL; LYMPH % 40.8 % (9.0-44.0); LYMPHOCYTE # 3.2 TH/MM3 (1.0-4.8); MEAN CELL VOLUME 90.9 FL (80.0-100.0); MEAN CORPUSCULAR HEMOGLOBIN 30.8 PG (27.0-34.0); MEAN CORPUSCULAR HGB CONC 33.9 % (32.0-36.0); MONO % 9.8 % (0.0-8.0); NEUT % 47.1 % (16.0-70.0); PLATELET COUNT 207 TH/MM3 (150-450); RED BLOOD COUNT 4.42 MIL/MM3 (4.50-5.90); RED CELL DISTRIBUTION WIDTH 12.6 % (11.6-17.2); WHITE BLOOD COUNT 7.8 TH/MM3 (4.0-11.0)
[2016-12-23 06:31] LABS: POTASSIUM 3.5 MEQ/L (3.5-5.1)
[2016-12-23 06:45] LABS: BICARBONATE 26.4 MEQ/L (21.0-32.0)
[2016-12-23] MEDS: DOCUSATE SODIUM 50 MG/SENNA 8.6 MG TAB PO SCH ×2 (09:00→21:35)
[2016-12-23] MEDS: amLODIPine BESYLATE 5 MG TAB PO SCH (09:17)
[2016-12-23] MEDS: TAMSULOSIN HCL 0.4 MG CAP PO SCH ×2 (09:17→21:35)
[2016-12-23] MEDS: LISINOPRIL 20 MG TAB PO SCH (09:17)
[2016-12-23] MEDS: METOPROLOL TARTRATE 50 MG TAB PO SCH (09:17)
[2016-12-23] MEDS: HYDROCHLOROTHIAZIDE 25 MG TAB PO SCH (09:18)
[2016-12-23] MEDS: SODIUM CHLORIDE 0.9% FLUSH 10 ML FLUSH IV FLUSH SCH ×2 (09:18→21:00)
[2016-12-23] MEDS ORDERED: HEPARIN-NS/PF INJ 1,000 ML ONE (11:46)
[2016-12-23] MEDS ORDERED: MIDAZOLAM HCL 2 MG/2 ML VIAL ONE (11:46)
[2016-12-23] MEDS ORDERED: HEPARIN SODIUM - IV 10,000 UNITS/10 ML VIAL ONE (11:46)
[2016-12-23] MEDS ORDERED: NITROGLYCERIN INJ 5 ML ONE (11:46)
--- NOTE | 2016-12-23 11:52 | HHI.PR ---
Subjective Remarks Nursing denies any acute reports since last night. She states that assignment officer was notified about elevated troponin. Patient himself says he denies any chest pain or shortness of breath. currently feels that he is okay and back to normal. Objective Vital Signs Date Time Temp Pulse Resp B/P (MAP) Pulse Ox O2 Delivery O2 Flow Rate FiO2 12/23/16 08:00 96 21 12/23/16 08:00 96.8 65 16 139/81 (100) 97 12/23/16 04:00 97.2 63 22 110/65 (80) 97 12/23/16 00:00 97.2 70 20 112/62 (79) 97 12/22/16 20:25 12/22/16 20:00 97.3 68 18 145/87 (106) 98 12/22/16 20:00 97.3 68 18 145/87 (106) 98 12/22/16 19:51 68 18 141/89 (106) 95 Room Air 12/22/16 19:40 95 21 12/22/16 18:51 77 16 143/93 (110) 95 Room Air 12/22/16 17:50 74 16 132/89 (103) 94 Room Air 12/22/16 17:14 84 18 119/80 (93) 95 Room Air 12/22/16 17:07 18 98 Room Air 12/22/16 16:34 97.8 152 18 123/78 (93) 96 I/O 12/22/16 12/22/16 12/22/16 12/23/16 12/23/16 12/23/16 06:59 14:59 22:59 06:59 14:59 22:59 Intake Total 1480 ml 480 ml Balance 1480 ml 480 ml Intake Oral 480 ml 480 ml IV Total 1000 ml # Voids 2 2 # Bowel Movements 0 0 Result Diagram: 12/23/1642212/23/16422 Objective Remarks Lying in bed, awake, alert, no acute distress Heart sounds are regular rate and rhythm, no murmurs Unlabored breathing, clear lungs bilaterally A/P Assessment and Plan 66 years old male admitted with Atrial flutter with RVR/SVT. Now has elevated troponin. New Elevated troponin 0.7 - D/w Dr. Cifuentes, cannot rule out acute coronary syndrome even though he had dysrhythmia with impaired renal function. Therefore Urgent transfer to [facility]. I Independently reviewed latest EKG which shows no obvious ST segment elevation or T-wave inversion. Can't r/o NSTEMI. Continue Lopressor, starting Lipitor 40 mg for appropriate high intensity coverage. ASA daily. continue heparin Atrial flutter with RVR/SVT>> improved after 2 doses of adenosine - stable rate at this time. Hypertension -Hold lisinopril due to MILIND, replaced with Norvasc and clonidine Dilated ascending aorta - MONITOR MILIND on CKD stage III - monitor w/ BMP kaycee since cath is anticipated Hyperlipidemia - lipitor Probably BPH - continue home flomax DVT prophylaxis - heparin given potential NSTEMI Caleb Boucher MD Dec 23, 2016 11:52
[2016-12-23] MEDS: ATORVASTATIN 40 MG TAB PO SCH ×2 (12:00→21:35)
--- NOTE | 2016-12-23 12:40 | MB ---
cc: RODOLFO RIOS DATE OF CONSULTATION: 12/23/2016 REASON FOR CONSULTATION: Non-ST elevation, myocardial infarction. HISTORY OF PRESENT ILLNESS: This is a 66 year-old gentleman with prior history of hypertension, hyperlipidemia, who presented to the emergency department with acute onset of palpitations, light headedness. I saw him in the office in the past and he has described some intermittent palpitations, We were planning to order a Holter Monitor but he actually presented to the emergency department at [facility] with racing hard prior to his visit. Last week he was given Adenosine IV times 2, which ultimately converted his rhythm. He left against medical advice and now has returned with similar symptoms. Again adenosine was administered with chemical cardioversion back to sinus rhythm. His troponin was initially negative and then second troponin came back elevated at 0.79. He denies any stefan chest pain or any history of normal heart disease, coronary artery disease, He was transferred from [facility] over to the [facility] for consideration of ischemic work up and cardiac catheterization. PAST MEDICAL HISTORY: 1. Hyperlipidemia. 2. Hypertension. 3. Supraventricular tachycardia. FAMILY HISTORY: No family history for coronary artery disease or sudden cardiac . SOCIAL HISTORY: Quit smoking 35 years ago. Denies any alcohol or drug use. REVIEW OF SYSTEMS The 12 review of systems were negative, unless otherwise explained in the history of present illness. PHYSICAL EXAMINATION: VITAL SIGNS: Blood pressure 139/81 mmHg. Alert and oriented times three. No acute distress. HEAD, EYES, EARS, NOSE, AND THROAT: Pupils equal, round, reactive to light and accommodation, extraocular movements are intact. No jugular venous distention. No thyromegaly. No carotid bruits. LUNGS: Clear to auscultation bilaterally. CARDIOVASCULAR SYSTEM: Regular rate and rhythm without murmurs, rubs or gallops. ABDOMEN: Nontender, nondistended, good bowel sounds, no hepatosplenomegaly. EXTREMITIES: The extremities showed no carotid stenosis or edema, good peripheral pulses, cranial nerves II through XII intact, motor sensory is grossly intact. LABORATORY FINDINGS: White blood count 7.8, hemoglobin 13.0, platelet counts 207, INR 1, sodium 140, potassium 3.5, blood urea nitrogen 73, creatinine 1.2, repeated yesterday was 28, creatinine was 1.7. Troponin went from 0.08 to 0.79 to 0.67. Presentation echocardiogram; at 4:30 p.m. on December 22, 2016 showed; supraventricular tachycardia with ST depression through the anterior lateral and inferolateral and inferior leads. ASSESSMENT: 1. Non-ST elevation myocardial infarction. 2. Supraventricular tachycardia, likely retry tachycardia. 3. Hypertension. PLAN: The patient has now had several recurrent episodes of what looks to be AV emmanuelle reentry tachycardia inseminated with adenosine. The patient is on Metoprolol as an outpatient with simple breakthrough symptoms. Electrocardiogram does not show a delta wave to suggest IVRT. The fact that he chemically converted with Adenosine would suggest that it is a reentry tachycardia and not atrial flutter to the one. At this point given his elevated troponin maybe demand mediated ischemia from tachycardia. We will proceed with diagnostic coronary angiography to rule out significant obstructive coronary artery disease, after which if that is relatively unremarkable, may talk to them about continued titration of beta blockade although his resting heart rate is in the low 60s versus antiarrhythmic versus consideration for possible ablation and electrophysiology consultation. We will await further results from the cardiac catheterization and make decision on his last echocardiogram showed structurally normal heart. MD MAGAN Chauhan/[place] /12:02 PM /12:10 PM
[2016-12-23] MEDS ORDERED: oxyCODONE/ACETAMINOPHEN 5 MG/325 MG TAB PO PRN (13:30)
[2016-12-23] MEDS ORDERED: MISC INFORMATION XX ONE (13:30)
[2016-12-23] MEDS ORDERED: BACITRACIN OINT 0.9 GM PKT TOP ONE (13:30)
--- NOTE | 2016-12-23 13:35 | CATHPROC ---
[facility] HIS Report Study Information Study Number Admission Scheduled Start Study Start [id number] Dec 22 2016 5:47PM 12/23/2016 Dec 23 2016 12:50PM [place] [facility] Catheterization Admit Source Facility Department Emergency department [facility] Physician and Clinical Staff Initial Tony Werner Storage Worker Tracey Quintero,RN Recorder Chidi Castellano,RT(R) Scrub Eyal Fonseca,RT(R) Procedures Performed Procedure Location (Site) Vessel Name Coronary Angiograms LCA Left Coronary Coronary Angiograms RCA Right Coronary Equipment Time Content Assistant Description Size Mfg Part Number Used/Scraped TRANSDUCER, TRUWAVE [id number] 13:10 [employer] * Used W/STOCKCOCK *[id number] *[id number] *[id number] 13:10 [employer] PACK, CCL CUSTOM * Used *[id number] 13:10 [employer] SUPPORT, ARTERIAL ADULT 01261 *[id number] Used [id number] 13:10 [employer] PACER PEN, SKIN DUAL W/ RULER * Used *[id number] BAND, RADIAL COMPRESSION TR [id number] 13:07 [facility] 29CM Used LARGE 29 *[id number] SHEATH, FR6 RADIAL PRELUDE 13:10 [facility] FR 6 [id number] Used EASE 11CM [id number] 13:10 [facility] WIRE, EXCHANGE 260CM 3MMJ 260CM Used *[id number] 13:10 [employer] OMNIPAQUE, 350 MG, 150ML 150ML [id number] Used [id number] 13:10 [employer] BLANKET,WARM AIR CCL * Used *[id number] History: Allergies Allergy Reaction STEROIDS HEARTBURN No Known Allergies History: Risk Factors Family History of Hypertension Dyslipidemia Previous [place] Previous Heart Failure Premature CAD Yes Yes No No No Prior Valve Prior PCI Prior CABG Surgery No No No Cerebrovascular Peripheral Artery Chronic Lung On Dialysis Diabetes Disease Disease Disease No No No No No History: Stress Tests Stress or Imaging Studies Performed No History: Other Current Smoker Method Quit Packs a Day Years Used Pack Years No Cigarettes 35 Years Ago 1 18 18 Labs Hgb (g/dl) Hct (%) WBC (l/cumm) Platelets (thousands) 11.60-17.00 35.00-51.00 4.00-11.00 150.00-450.00 13.6 40.2 7.8 207 Glucose (mg/dl) BUN (mg/dl) Creatinine (mg/dl) BUN:Creatinine (1:x) 74.00-106.00 7.00-18.00 0.50-1.30 10.00-20.00 88 33 1.2 27.5 Na (meq/l) K (meq/l) 136.00-145.00 3.50-5.10 140 3.5 Troponin I (ng/ml) CPK-MB (ng/ML) 0.02-0.05 0.50-3.60 0.67 Not Drawn Medication Medication Total Dose (Bolus/Oral) Medication Total Dosage/Unit 1% XYLOCAINE 5 mL FENTANYL 50 mcg HEPARIN 3000 units NTG (IC) 200 mcg VERSED 1 mg Medications (Bolus/Oral) Medication Time Given Dosage/Unit Administered By Reason VERSED 12/23/2016 1:03:13 PM 1 mg Tracey Quintero Patient arrived on 1 mg VERSED given by Tracey Quintero RN via Peripheral IV. Ordered by Jose Luis Cifuentes. FENTANYL 12/23/2016 1:04:18 PM 50 mcg Tony Cifuentes Patient arrived on 50 mcg FENTANYL given by Tony Cifuentes via Peripheral IV. Ordered by Ashley Cifuentes en. 1% XYLOCAINE 12/23/2016 1:04:31 PM 5 mL Tony Cifuentes Patient arrived on 5 mL 1% XYLOCAINE given by Tony Cifuentes in Right Radial via Subcutaneous. Ordere d by Tony Cifuentes. NTG (IC) 12/23/2016 1:10:06 PM 200 mcg Tony Cifuentes Patient arrived on 200 mcg NTG (IC) given by Tony Cifuentes via Intra-arterial. Ordered by Momo Cifuentes. HEPARIN 12/23/2016 1:10:23 PM 3000 units Tony Cifuentes 3000 units HEPARIN given in lab by Tony Cifuentes in Right Antecubital via Peripheral IV. Ordered by Tony Cifuentes. Medication (Drip) Medication Time Given Dosage/Unit Concentration/Unit Diluent (ml) Solution IV Solutions 12/23/2016 1:00:23 PM 0 mL (IV) 500 NaCl .9 Patient arrived on IV Solutions given by Tony Cifuentes in Right Antecubital via Peripheral IV. Pump/ Drip Flow = 20 ml/hr using NaCl .9. Ordered by Tony Cifuentes. Initial Case Assessment Cardiovascular HR Rhythm NIBP Chest Pain 70 sr 187/110 0 Edema Present Skin color Skin None Normal Warm Dry Circulatory - Right Pulses Posterior Tibial Femoral Radial 3 3 3 Scale (0,1,2,3,4,d) Scale (0,1,2,3,4,d) Neurological State Oriented to time-place- Alert Moves all extremities person Respiration - General Respiration Rate SpO2 (%) O2 (lpm) (B/min) 18 100 0 Final Case Assessment Cardiovascular HR Rhythm NIBP Chest Pain 69 sr 142/83 0 Edema Present Skin color Skin None Normal Warm Dry Circulatory - Right Pulses Posterior Tibial Femoral Radial 3 3 3 Scale (0,1,2,3,4,d) Scale (0,1,2,3,4,d) Neurological State Oriented to time-place- Alert Moves all extremities person Respiration - General Respiration Rate SpO2 (%) O2 (lpm) (B/min) 18 98 0 Chronological Log Time Study Chronological Log 12:50:17 Patient arrived via Bed. Positive Allens test performed by Chidi Castellano. 12:50:21 Patient Name, D.O.B, / Armband Verified By R.N. 12:50:23 Consent signed by the physician and the patient and verified by the [facility] staff. 12:50:24 Pre-op and post- op instructions given; patient acknowledges understanding of instructions. 12:51:17 Verbal Stimulation=2 Physical Stimulation=2 Airway=2 Respiration=2 TOTAL=8. (0=absent, 1=li mited, 2=present) 12:51:27 Presedation assessment performed by [facility] RN. Vitals capture started with the following parameters, Patient=Adult, Interval=5 min, Initial Pr gatkjy=785 mmHg, 12:55:44 Deflation Rate=5 mmHg 12:56:26 HR=72 bpm, JGAD=895/101 mmhg, SpO2=98.0 %, Resp=16 B/min, Abarca=2 12:58:48 Patient has been NPO for Less than 6Hrs. 12:58:54 Skin Breakdown-none noted per patient. 13:00:13 A # 20 IV was noted in the Antecubital (right). Grade = 0 Patient arrived on IV Solutions given by Tony Cifuentes in Right Antecubital via Peripheral IV. Pump/Drip Flow = 20 13:00:23 ml/hr using NaCl .9. Ordered by Tony Cifuentes. 13:00:41 History and physical on the chart or being dictated. Assessment: Initial Case, HR=70 BPM, Rhythm=sr, VOPC=371/110 mmhg, Chest Pain=0, Edema=None, Co geovani=Normal, Skin = Warm, Dry 13:00:56 Right Pulses: Post Tib=3, Femoral=3, Radial=3 Neurological: State=Alert, Ox3, OBANDO Respiration: Resp=18 B/min, QsJ2=301 %, O2=0 lpm 13:01:08 Reference ECG taken 13:01:27 HR=72 bpm, ITOO=696/110 mmhg, SpO2=99.0 %, Resp=12 B/min, Abarca=2 13:01:40 Right groin and right radial prepped with 2% chlorhexidine, and draped after a 3 min. waiti ng time. 13:03:13 Patient arrived on 1 mg VERSED given by Tracey Quintero, BRUNO via Peripheral IV. Ordered by Tony Gaines. Time Out. Correct patient, correct procedure, correct physician, power injector loaded with con trast with surgical team 13:03:39 present. Time Out Concurred by MD and individual staff in procedure. Loaded by Sugey Quintero rn ., verified by Eyal Fonseca. 13:04:08 Presedation re-assessment performed by [facility] RN. 13:04:10 Case Start 13:04:18 Patient arrived on 50 mcg FENTANYL given by Tony Cifuentes via Peripheral IV. Ordered by Tony Wheeler. 13:04:22 Verbal Stimulation=2 Physical Stimulation=2 Airway=2 Respiration=2 TOTAL=8. (0=absent, 1=li mited, 2=present) Patient arrived on 5 mL 1% XYLOCAINE given by Tony Cifuentes in Right Radial via Subcutaneous. Ordered by Esau 13:04:31 Tony. 13:06:09 Pressure channel 1 zeroed. 13:06:28 HR=66 bpm, KSTG=695/97 mmhg, SpO2=98.0 %, Resp=11 B/min, Abarca=2 13:09:21 Access site was Radial Artery. A SHEATH, FR6 RADIAL PRELUDE EASE 11CM FR 6 was advanced into the Radial (right) using the Perc utaneous 13:09:51 technique. 13:10:06 Patient arrived on 200 mcg NTG (IC) given by Tony Cifuentes via Intra-arterial. Ordered by Tony Cifuentes. 13:10:23 3000 units HEPARIN given in lab by Tony Cifuentes in Right Antecubital via Peripheral IV. O rdered by Tony Cifuentes. A JR 5.0 INFINITI CATHETER FR 6 was advanced over a wire. OMNIPAQUE, 350 MG, 150ML 150ML was us ed for 13:10:35 injections. 13:11:23 HR=68 bpm, YDJI=886/90 mmhg, SpO2=95.0 %, Resp=15 B/min, Abarca=2 Recorded Pressure: LV, HR=69, Condition=Condition 1 13:11:43 (Left Ventricle) LV 177/-30/5 Recorded Pressure: LV, Ao, HR=67, Condition=Condition 1 13:11:48 (Left Ventricle) LV 175/-30/4, (Aorta) Ao 155/33/98 Recorded Pressure: Ao, HR=72, Condition=Condition 1 13:12:36 (Aorta) Ao 141/83/108 13:13:09 The RCA was injected and visualized at various angles. OMNIPAQUE, 350 MG, 150ML 150ML used . After removing the current catheter a JL 3.5 INFINITI CATHETER FR 6 was advanced over a WIRE, EXCHANGE 260CM 13:13:37 3MMJ 260CM. 13:13:41 The LCA was injected and visualized at various angles. OMNIPAQUE, 350 MG, 150ML 150ML use d. 13:16:22 HR=69 bpm, QRPZ=304/83 mmhg, SpO2=96.0 %, Resp=12 B/min, Abarca=2 13:16:50 Catheter was removed OTW. 13:18:50 Case End Assessment: Final Case, HR=69 BPM, Rhythm=sr, BZGX=139/83 mmhg, Chest Pain=0, Edema=None, [place] r=Normal, Skin = Warm, Dry 13:19:13 Right Pulses: Post Tib=3, Femoral=3, Radial=3 Neurological: State=Alert, Ox3, OBANDO Respiration: Resp=18 B/min, SpO2=98 %, O2=0 lpm Radial Compression Device Used. 16 mLs of air placed in BAND, RADIAL COMPRESSION TR LARGE 29 2 9CM. Affected 13:19:48 hand 94 % O2 saturation. 13:20:00 No case complications noted. 13:20:03 Cine recording checked. 13:20:05 Bedside Report will be given. 13:20:07 Contrast Scanned 13:21:21 HR=65 bpm, KJOU=029/84 mmhg, SpO2=94.0 %, Resp=13 B/min, Abarca=2 13:34:58 [facility] Study - Contrast Media Used In Study Contrast Total Opened (mL) Total Used (mL) Total Wasted (mL) Omnipaque 50 50 0 End Study - Maximum Contrast Load Max Contrast Load (mL) 421.6 End Study - Radiation Exposure Fluoro Time (minutes) 2.3 End Study - Patient Disposition Complications Transferred To Telemetry Bed
--- NOTE | 2016-12-23 14:02 | MA ---
cc: RODOLFO RIOS DATE: 12/23/2016 INDICATION [id number]-[id number] VT. PROCEDURE PERFORMED 1. Fluoroscopy with interpretation. 2. Left heart catheterization. 3. Coronary angiography. METHOD The risks, benefits and alternatives were discussed with the patient. The patient understood and consented to the procedure. The patient was brought into the catheterization lab and was placed on the catheterization table. The right wrist was prepped and draped in a sterile fashion. The right wrist was anesthetized with 2% lidocaine. The right radial artery was cannulated and a 6 Czech, 7 cm sheath was placed without difficulty. 200 mcg of intra-arterial nitroglycerin and 3000 units of intravenous heparin was administered. LEFT HEART CATHETERIZATION Intraventricular hemodynamics measured at 175/4 mmHg. CORONARY ANGIOGRAPHY 1. The LAD and circumflex originate from some separate ostium. 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 2. The left anterior descending coronary artery is angiographically normal. There is a moderate-sized diagonal branch. 3. The left circumflex artery is a co-dominant vessel giving rise to a posterior descending branch. The left circumflex is widely patent. 4. The right coronary artery is co-dominant but smaller caliber size. There is MCKAY-II flow but otherwise angiographically normal. CONCLUSIONS 1. Nonobstructive coronary artery disease. 2. Normal left-sided filling pressures. PLAN The patient's elevated troponin is secondary to his tachycardia. He has had recurrence despite beta key therapy. I will ask Dr. Luna of electrophysiology to take a look to see if any further medical therapy is recommended versus ablation. MD MAGAN Chauhan/GEOVANY /1:23 PM /1:51 PM
[2016-12-23] MEDS ORDERED: CHLORHEXIDINE GLUCONATE 2 % 1 PACK (2 CLOTHS)(extra cloths) TOPICAL PRN (17:30)
--- NOTE | 2016-12-23 20:41 | EKG ---
Date Performed: 12/22/2016 Time Performed: 16:33:25 PTAGE: 66 years EKG: SUPERVENTRICULAR TACHYCARDIA WHICH IS EITHER A PAROXYSMAL SVT VS ATRIAL FLUTTER. DIFFUSED S T T CHANGES. SINCE PREVIOUS TRACING 12/15/2016, THE ARRHYTHMIA IS NEW AND ST T CHANGES ARE NEW. POOR INITIAL ANTERIOR FORCES IN V1 AND V2 ARE STILL PRESENT. Clinical correlation is recommended ABNORMAL ECG PREVIOUS TRACING : 12/15/2016 16.50 DOCTOR: Ambrosio Sanches Interpretating Date/Time 12/23/2016 20:53:25
--- NOTE | 2016-12-23 20:47 | EKG ---
Date Performed: 12/22/2016 Time Performed: 17:03:10 PTAGE: 66 years EKG: Sinus rhythm POOR INITIAL ANTERIOR FORCES, WHICH MAYBE NORMAL VARIANT. PROBABLE WITHIN NORMAL LIMITS. SINCE PREVI OUS TRACING 12/22/2016, THE SUPRAVENTRICULAR TACHYCARDIA HAS CHANGED TO SINUS RHYTHM AND THE ST T PEARL NGES HAVE RESOLVED. NORMAL ECG PREVIOUS TRACING : 12/22/2016 16.33 DOCTOR: Ambrosio Sanches Interpretating Date/Time 12/23/2016 20:46:46
--- NOTE | 2016-12-23 20:51 | EKG ---
Date Performed: 12/22/2016 Time Performed: 22:10:18 PTAGE: 66 years EKG: Sinus rhythm WITH OCCASIONAL PVC'S POOR INITIAL ANTERIOR FORCES IN V1 AND V2 WHICH MAYBE NORMAL VARIANT. SINCE [place] EVIOUS TRACING 12/22/2016, THE PVC'S ARE NEW. ABNORMAL ECG PREVIOUS TRACING : 12/22/2016 17.03 DOCTOR: Ambrosio Sanches Interpretating Date/Time 12/23/2016 20:49:39
--- NOTE | 2016-12-23 20:53 | EKG ---
Date Performed: 12/23/2016 Time Performed: 04:36:05 PTAGE: 66 years EKG: Sinus rhythm POOR INITIAL ANTERIOR FORCES IN V1 AND V2. OTHERWISE WITHIN NORMAL LIMITS. SINCE PREVIOUS TRACING , PVC'S NO LONGER PRESENT. NORMAL ECG PREVIOUS TRACING : 12/22/2016 22.10 DOCTOR: Ambrosio Sanches Interpretating Date/Time 12/23/2016 20:51:39
[2016-12-24] VITALS (18 sets, daily range): BP systolic 103–168; BP diastolic 56–90; PULSE 0–70; RESP 14–17; TEMP 98–98.6; O2SAT 93–98
[2016-12-24] MEDS: CHLORHEXIDINE GLUCONATE 2 % 1 PACK (2 CLOTHS)(taper/protocol) TOPICAL SCH ×2 (04:00→22:17)
[2016-12-24 05:46] LABS: AUTOMATED NEUTROPHIL # 5.1 TH/MM3 (1.8-7.7); BASOPHIL # 0.1 TH/MM3 (0-0.2); BASOPHIL % 0.6 % (0.0-2.0); EOSINOPHIL # 0.1 TH/MM3 (0-0.4); HEMATOCRIT 43.3 % (39.0-51.0); HEMO FLAGS DIFF FINAL; LYMPH % 38.6 % (9.0-44.0); LYMPHOCYTE # 3.8 TH/MM3 (1.0-4.8); MEAN CELL VOLUME 90.8 FL (80.0-100.0); MEAN CORPUSCULAR HEMOGLOBIN 31.7 PG (27.0-34.0); MEAN CORPUSCULAR HGB CONC 34.9 % (32.0-36.0); MONO % 8.1 % (0.0-8.0); NEUT % 51.7 % (16.0-70.0); PLATELET COUNT 206 TH/MM3 (150-450); RED BLOOD COUNT 4.77 MIL/MM3 (4.50-5.90); RED CELL DISTRIBUTION WIDTH 13.2 % (11.6-17.2)
[2016-12-24 06:10] LABS: BICARBONATE 25.4 MEQ/L (21.0-32.0); POTASSIUM 3.4 MEQ/L (3.5-5.1)
[2016-12-24] MEDS: DOCUSATE SODIUM 50 MG/SENNA 8.6 MG TAB PO SCH ×2 (08:43→21:00)
[2016-12-24] MEDS: amLODIPine BESYLATE 5 MG TAB PO SCH (08:43)
[2016-12-24] MEDS: HYDROCHLOROTHIAZIDE 25 MG TAB PO SCH (08:44)
[2016-12-24] MEDS: TAMSULOSIN HCL 0.4 MG CAP PO SCH ×2 (08:44→21:05)
[2016-12-24] MEDS: LISINOPRIL 20 MG TAB PO SCH (08:44)
[2016-12-24] MEDS: SODIUM CHLORIDE 0.9% FLUSH 10 ML FLUSH IV FLUSH SCH ×2 (08:44→21:05)
[2016-12-24] MEDS: METOPROLOL TARTRATE 50 MG TAB PO SCH (08:44)
--- NOTE | 2016-12-24 08:49 | MB ---
cc: EDDIE BECERRIL M.D. DATE OF CONSULTATION: 12/23/2016 REASON FOR CONSULTATION Supraventricular tachyarrhythmia. HISTORY OF PRESENT ILLNESS Mr. Chauhan is a 66-year-old gentleman with a history of tachyarrhythmia and shortness of breath. The gentleman had a previous hospitalization around 6-8 months ago. He was admitted due to tachyarrhythmia. He received adenosine, broke into sinus rhythm. Subsequently the gentleman left the hospital AMA. He was re-admitted again this week with palpitations. Heart rate was controlled with adenosine. Troponin increased up close to 0.8. Left heart catheterization was done by Dr. Cifuentes. There was no significant occlusion. I was consulted for evaluation and management. The chart was reviewed. The patient was evaluated. I discussed the case extensively with Dr. Cifuentes as well as the patient. ALLERGIES None reported. SOCIAL HISTORY The gentleman stopped smoking over 35 years ago. Negative for drinking. FAMILY HISTORY Noncontributory to his current medical condition. MEDICATIONS He is currently on: 1. Amlodipine 5 mg a day. 2. Aspirin 325 mg a day. 3. Lipitor 40 mg a day. 4. Clonidine p.r.n. 5. Lisinopril 40 mg a day. 6. Hydrochlorothiazide 25 mg a day. 7. Magnesium. 8. Metoprolol 50 mg a day. REVIEW OF SYSTEMS He refers no chest pain, no chest discomfort, no vomiting, no fever. PHYSICAL EXAMINATION GENERAL: Alert, fully oriented. VITAL SIGNS: His blood pressure on evaluation was 129/80, pulse 58, respiratory rate 18. LUNGS: Ventilated. CARDIOVASCULAR: S1, S2, no gallop, no murmur. ABDOMEN: Soft. No mass. Obese. No bruit. EXTREMITIES: No edema. ELECTROCARDIOGRAM Electrocardiogram on hospitalization shows supraventricular tachyarrhythmia, short VA time. Subsequent electrocardiogram shows sinus rhythm, no acute ST and T-wave changes, no preexcitation. LABORATORY Potassium 3.5. Creatinine 1.20. Troponin 0.79. INR 1.0. Hemoglobin 13.6, white blood cell count 7.8. ASSESSMENT AND RECOMMENDATION Mr. Chauhan has multiple episodes of supraventricular tachyarrhythmia, very symptomatic. 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 He says on multiple occasions he has to stop because he feels the palpitation is coming. The arrhythmia broke with adenosine. There is no preexcitation. He can be in AV emmanuelle reentrant tachycardia versus atrial tachycardia versus pulmonary vein tachyarrhythmia. He has nonocclusive coronary artery disease. His ejection fraction is normal. Electrophysiology study and ablation was discussed. The risks, the nature and the benefit of the procedure were clearly stated to him. Risks include pneumothorax, cardiac perforation, stroke and even . He understood and agreed to proceed. The patient will be kept n.p.o. after breakfast for procedure tomorrow afternoon. Eddie Becerril MD HS/BT /8:14 AM /8:35 AM
--- NOTE | 2016-12-24 09:30 | PD.CARD.PN ---
Subjective Subjective Remarks feeling well. denies chest pain or sob (Lyn Jeffrey) Objective Medications Current Medications Medications (Trade) Dose Ordered Sig/Nitin Route Start Time Stop Time Status Last Admin (Hydrodiuril) 25 mg DAILY PO 12/23/16 09:00 12/24/16 08:44 (Lopressor) 50 mg DAILY PO 12/23/16 09:00 12/24/16 08:44 (Flomax) 0.4 mg BID PO 12/22/16 21:00 12/24/16 08:44 (Prinivil) 40 mg DAILY PO 12/23/16 09:00 12/24/16 08:44 (NS Flush) 2 ml UNSCH PRN IV FLUSH 12/22/16 18:15 (NS Flush) 2 ml BID IV FLUSH 12/22/16 21:00 12/24/16 08:44 (Tylenol) 650 mg Q4H PRN PO 12/22/16 18:15 (Zofran Inj) 4 mg Q6H PRN IVP 12/22/16 18:15 (Narcan Inj) 0.4 mg UNSCH PRN IV PUSH 12/22/16 18:15 (Sveta-Colace) 1 tab BID PO 12/22/16 21:00 12/24/16 08:43 (Milk Of Magnesia Liq) 30 ml Q12H PRN PO 12/22/16 18:15 (Senokot) 17.2 mg Q12H PRN PO 12/22/16 18:15 (Dulcolax Supp) 10 mg DAILY PRN RECTAL 12/22/16 18:15 (Catapres) 0.1 mg Q6H PRN PO 12/22/16 18:15 (Norvasc) 5 mg DAILY PO 12/23/16 09:00 12/24/16 08:43 (Lipitor) 40 mg HS PO 12/23/16 12:00 12/23/16 21:35 (Aspirin) 325 mg DAILY PO 12/24/16 17:00 (Percocet 5-325 Mg) 1 tab Q4H PRN PO 12/23/16 13:30 Miscellaneous Information Patient in critical care unit? Ass... [id number] .XX 12/23/16 17:30 (Chlorhexidine 2% Cloth) 3 pack DAILY@04 TOPICAL 12/24/16 04:00 12/28/16 04:01 (Chlorhexidine 2% Cloth) 3 pack UNSCH PRN TOPICAL 12/23/16 17:30 12/28/16 17:18 Vital Signs / I&O Vital Signs Date Time Temp Pulse Resp B/P (MAP) Pulse Ox O2 Delivery O2 Flow Rate FiO2 12/24/16 07:38 96 12/24/16 06:00 61 12/24/16 04:00 98.6 55 15 106/67 (80) 93 12/24/16 04:00 55 12/24/16 00:26 97 12/24/16 00:00 98.5 58 14 119/73 (88) 94 12/24/16 00:00 58 12/23/16 22:00 63 12/23/16 20:00 63 24 142/79 (100) 94 12/23/16 20:00 63 12/23/16 17:45 65 140/68 (92) 97 12/23/16 17:30 60 135/69 (91) 96 12/23/16 17:15 64 141/79 (99) 98 12/23/16 17:01 64 133/72 (92) 98 12/23/16 17:00 61 96 12/23/16 16:45 57 146/76 (99) 97 12/23/16 16:30 58 135/86 (102) 95 12/23/16 16:15 68 142/90 (107) 95 12/23/16 16:00 98.3 59 135/80 (98) 97 12/23/16 15:58 94 21 12/23/16 15:30 58 135/84 (101) 96 12/23/16 15:15 58 129/80 (96) 96 12/23/16 15:00 59 136/79 (98) 95 12/23/16 14:45 59 151/80 (103) 95 12/23/16 14:30 59 133/79 (97) 93 12/23/16 14:15 64 156/84 (108) 95 12/23/16 14:00 55 128/76 (93) 92 I/O 12/23/16 12/23/16 12/23/16 12/24/16 12/24/16 12/24/16 07:00 15:00 23:00 07:00 15:00 23:00 Intake Total 480 ml 400 ml 0 ml Output Total 600 ml 1200 ml Balance 480 ml -200 ml -1200 ml Intake Oral 480 ml 400 ml IV Total 0 ml Output Urine Total 600 ml 1200 ml # Voids 2 3 # Bowel Movements 0 0 0 Physical Exam HEAD: Atraumatic. Normocephalic. EYES: Pupils equal and round. No scleral icterus. No injection or drainage. ENT: No nasal bleeding or discharge. Mucous membranes pink and moist. NECK: Trachea midline. No JVD. CARDIOVASCULAR: Regular rate and rhythm. no murmurs RESPIRATORY: No accessory muscle use. Clear to auscultation. Breath sounds equal bilaterally. GASTROINTESTINAL: Abdomen soft, non-tender, nondistended. MUSCULOSKELETAL: Extremities without clubbing, cyanosis, or edema. No obvious deformities. NEUROLOGICAL: Awake and alert. No obvious cranial nerve deficits. Normal speech. PSYCHIATRIC: Appropriate mood and affect; insight and judgment normal. Laboratory Laboratory Tests Test 12/23/16 15:00 12/24/16 05:04 12/24/16 05:07 Nasal Screen MRSA (PCR) MRSA NOT DETECTED Blood Urea Nitrogen 21 MG/DL Creatinine 1.08 MG/DL Random Glucose 94 MG/DL Calcium Level 8.8 MG/DL Sodium Level 137 MEQ/L Potassium Level 3.4 MEQ/L Chloride Level 103 MEQ/L Carbon Dioxide Level 25.4 MEQ/L Anion Gap 9 MEQ/L Estimat Glomerular Filtration Rate 68 ML/MIN White Blood Count 10.0 TH/MM3 Red Blood Count 4.77 MIL/MM3 Hemoglobin 15.1 GM/DL Hematocrit 43.3 % Mean Corpuscular Volume 90.8 FL Mean Corpuscular Hemoglobin 31.7 PG Mean Corpuscular Hemoglobin Concent 34.9 % Red Cell Distribution Width 13.2 % Platelet Count 206 TH/MM3 Mean Platelet Volume 8.9 FL Neutrophils (%) (Auto) 51.7 % Lymphocytes (%) (Auto) 38.6 % Monocytes (%) (Auto) 8.1 % Eosinophils (%) (Auto) 1.0 % Basophils (%) (Auto) 0.6 % Neutrophils # (Auto) 5.1 TH/MM3 Lymphocytes # (Auto) 3.8 TH/MM3 Monocytes # (Auto) 0.8 TH/MM3 Eosinophils # (Auto) 0.1 TH/MM3 Basophils # (Auto) 0.1 TH/MM3 CBC Comment DIFF FINAL Differential Comment (Lyn Jeffrey) Assessment and Plan Problem List: (1) SVT (supraventricular tachycardia) ICD Codes: I47.1 - Supraventricular tachycardia Status: Acute Assessment and Plan 66 yo M with HTN. HLD and recurrent SVT who presented to [place] ED with palpitations yesterday. He was transferred to [facility] where he was found to have elevated troponins. He underwent cardiac catheterization that showed non- obstructive cad. SVT converted with administration of adenosine. 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 patient feeling well and currently in NSR, HR 60. Dr. Luna has met with patient who agrees to undergo EP study with ablation this afternoon. (Lyn Jeffrey) Assessment and Plan NSTEMI - demand mediated SVT - reentrant tachycardia. EPS today will sign off Dr. Luna to manage cardiac issues from here call with questions can FU in OPD (Tony Cifuentes MD) Lyn Jeffrey Dec 24, 2016 09:30 Tony Cifuentes MD Dec 24, 2016 09:55
--- NOTE | 2016-12-24 09:58 | HHI.PR ---
Subjective Remarks Follow-up supraventricular tachycardia arrhythmia 12/24/16-patient seen and examined, denies any chest pain or shortness of breath. Currently nothing by mouth pending EP study with possible ablation today. Objective Vitals Vital Signs Date Time Temp Pulse Resp B/P (MAP) Pulse Ox O2 Delivery O2 Flow Rate FiO2 12/24/16 07:38 96 12/24/16 06:00 61 12/24/16 04:00 98.6 55 15 106/67 (80) 93 12/24/16 04:00 55 12/24/16 00:26 97 12/24/16 00:00 98.5 58 14 119/73 (88) 94 12/24/16 00:00 58 12/23/16 22:00 63 12/23/16 20:00 63 24 142/79 (100) 94 12/23/16 20:00 63 12/23/16 17:45 65 140/68 (92) 97 12/23/16 17:30 60 135/69 (91) 96 12/23/16 17:15 64 141/79 (99) 98 12/23/16 17:01 64 133/72 (92) 98 12/23/16 17:00 61 96 12/23/16 16:45 57 146/76 (99) 97 12/23/16 16:30 58 135/86 (102) 95 12/23/16 16:15 68 142/90 (107) 95 12/23/16 16:00 98.3 59 135/80 (98) 97 12/23/16 15:58 94 21 12/23/16 15:30 58 135/84 (101) 96 12/23/16 15:15 58 129/80 (96) 96 12/23/16 15:00 59 136/79 (98) 95 12/23/16 14:45 59 151/80 (103) 95 12/23/16 14:30 59 133/79 (97) 93 12/23/16 14:15 64 156/84 (108) 95 12/23/16 14:00 55 128/76 (93) 92 I/O 12/23/16 12/23/16 12/23/16 12/24/16 12/24/16 12/24/16 06:59 14:59 22:59 06:59 14:59 22:59 Intake Total 480 ml 400 ml 0 ml Output Total 600 ml 1200 ml Balance 480 ml -200 ml -1200 ml Intake Oral 480 ml 400 ml IV Total 0 ml Output Urine Total 600 ml 1200 ml # Voids 2 3 # Bowel Movements 0 0 0 Result Diagram: 12/24/16 0507 12/24/16 0504 Imaging Last Impressions Chest X-Ray 12/22/16 1637 Signed Impressions: Service Date/Time: Thursday, December 22, 2016 16:48 - CONCLUSION: No acute cardiopulmonary abnormality is identified. Michael Daley MD Objective Remarks GENERAL: NAD SKIN: Warm and dry. HEAD: Normocephalic. EYES: No scleral icterus. No injection or drainage. NECK: Supple, trachea midline. No JVD or lymphadenopathy. CARDIOVASCULAR: Regular rate and rhythm without murmurs, gallops, or rubs. RESPIRATORY: Breath sounds equal bilaterally. No accessory muscle use. GASTROINTESTINAL: Abdomen soft, non-tender, nondistended. MUSCULOSKELETAL: No cyanosis, or edema. BACK: Nontender without obvious deformity. No CVA tenderness. 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
[2016-12-24] MEDS ORDERED: PHENYLEPH/NS 1000 MCG/10 ML SYR IV ONE (12:00)
[2016-12-24] MEDS ORDERED: LIDOCAINE HCL 1% PF 5 ML AMPULE OTHER ONE (12:00)
[2016-12-24] MEDS ORDERED: PROPOFOL 200 MG/20 ML AMP IV ONE (12:00)
[2016-12-24] MEDS ORDERED: HEPARIN-NS/PF INJ 1,000 ML ONE (15:34)
[2016-12-24] MEDS ORDERED: ISOPROTERENOL HCL 1 MG/5 ML AMP ONE (15:37)
[2016-12-24] MEDS: ASPIRIN 325 MG TAB PO SCH (17:00)
--- NOTE | 2016-12-24 17:08 | CATHPROC ---
[facility] HIS Report Study Information Study Number Admission Scheduled Start Study Start [id number] Dec 22 2016 5:47PM 12/24/2016 Dec 24 2016 3:01PM [place] Service Electrophysiology Study Admit Source Facility Department Other [facility] - [facility] Manager Physician and Clinical Staff Initial Tonny Sahu Cash Controller Mark Medel,RT(R) Other Anesthesia, LEAD QUALITY TECHNICIAN Recorder Delia Goode,RN Scrub Abby Aparicio,RT(R) TECH2 Procedures Performed Procedure Location (Site) Vessel Name Ablation Procedure RF Ablation Isthmus Other Equipment Time Lead Burner Description Size Mfg Part Number Used/Scraped BIOSENSE OCHOA CATHETER, CELSIUS, 4MM, D [id number] 16:31 FR 7 Used INC. TYPE QUAD *[id number] 15:50 [employer] INDUSTRIES PACK, CCL CUSTOM * Used *[id number] 15:50 [employer] PACER CORNELIUS, LIMB * 2530 *[id number] Used [id number] 15:50 [employer] BLANKET,WARM AIR CCL * Used *[id number] 15:50 [employer] CATHETER, JSN, QUAD FR 5 Used *[id number] 15:50 [employer] CATHETER, JSN, QUAD FR 5 Used *[id number] 161999 15:50 [employer] CATHETER, JSN, QUAD FR 5 Used *[id number] [id number] 15:50 [employer] CATHETER, JSN, QUAD FR 5 Used *[id number] 15:50 [employer] ELECTRODE KIT, CHRISTOPHER X SURFACE * [id number] Used [id number] 15:51 [employer] SHEATH, EPS, FR5 FAST CATH FR 5 Used *[id number] 15:51 [employer] SHEATH, EPS, FR5 FAST CATH FR 5 Used *[id number] 15:51 [employer] SHEATH, EPS, FR5 FAST CATH FR 5 Used *[id number] [id number] 15:51 [employer] SHEATH, EPS, FR6 FAST CATH FR 6 Used *[id number] [id number] 15:51 [employer] SHEATH, EPS, FR8 FAST CATH FR 8 Used *[id number] [facility] P[facility], ELECTROSURGICAL 15:50 * [id number] *[id number] Used SURGICAL GROUNDING (BLUE) Medication Medication Total Dose (Bolus/Oral) Medication Total Dosage/Unit 1% XYLOCAINE 40 mL Medications (Bolus/Oral) Medication Time Given Dosage/Unit Administered By Reason 1% XYLOCAINE 12/24/2016 4:16:06 PM 20 mL Patient arrived on 20 mL 1% XYLOCAINE in Left Groin via Subcutaneous. Ordered by Tonny Luna. 1% XYLOCAINE 12/24/2016 4:16:47 PM 20 mL Tonny Luna 20 mL 1% XYLOCAINE given in lab by Tonny Luna in Right Groin via Subcutaneous. Ordered by Hazel Luna. Medication (Drip) Medication Time Given Dosage/Unit Concentration/Unit Diluent (ml) Solution ISUPREL 12/24/2016 4:26:00 PM 4 mcg/min 1 mg 250 NaCl .9 4 mcg/min ISUPREL given in lab by Anesthesia, LEAD QUALITY TECHNICIAN via Peripheral IV. Pump/Drip Flow = 60 ml/hr using NaCl .9 with a concentration of 1 mg in 250 ml. Ordered by Tonny Luna. ISUPREL 12/24/2016 4:45:10 PM 4 mcg/min 1 mg 250 NaCl .9 4 mcg/min ISUPREL given in lab by Anesthesia, LEAD QUALITY TECHNICIAN via Peripheral IV. Pump/Drip Flow = 60 ml/hr using NaCl .9 with a concentration of 1 mg in 250 ml. Ordered by Tonny Luna. IV Solutions 12/24/2016 3:38:49 PM 0 mL (IV) 500 NaCl .9 Patient arrived on IV Solutions in Right Antecubital via Peripheral IV. Pump/Drip Flow = 20 ml/hr usi ng NaCl .9. Ordered by Tonny Luna. Initial Case Assessment Cardiovascular HR Rhythm NIBP Chest Pain 83 SVT 207/99 0 Edema Present Skin color Skin None Normal Warm Dry Circulatory - Right Pulses Dorsalis Pedis Femoral 1 1 Scale (0,1,2,3,4,d) Circulatory - Left Pulses Dorsalis Pedis Femoral 1 1 Scale (0,1,2,3,4,d) Circulatory - Lower Extremities Color Lower Right Color Lower Left Normal Normal Neurological State Oriented to time-place- Alert Moves all extremities person Respiration - General Respiration Rate SpO2 (%) (B/min) 21 98 Chronological Log Time Study Chronological Log 15:21:06 Patient arrived via Bed. 15:21:07 Patient Name, D.O.B, / Armband Verified By R.N. 15:21:08 Consent signed by the physician and the patient and verified by the Shell[facility] Manager staff. 15:21:08 Pre-op and post- op instructions given; patient acknowledges understanding of instruction s. 15:37:48 Anesthesia at bedside. Assumes care of patient. 15:38:23 Patient has been NPO for More than 6Hrs. 15:38:46 Disposable Defibrillator Pads Placed On Patient. 15:38:48 A # 20 IV was noted in the Antecubital (left). Grade = 0 Patient arrived on IV Solutions in Right Antecubital via Peripheral IV. Pump/Drip Flow = 20 ml/ hr using NaCl .9. Ordered 15:38:49 by Tonny Luna. 15:38:51 A # 20 IV was noted in the Antecubital (right). Grade = 0 15:40:11 History and physical on the chart or being dictated. Assessment: Initial Case, HR=83 BPM, Rhythm=SVT, DRER=804/99 mmhg, Chest Pain=0, Edema=None, Color=Normal, Skin = Warm, Dry Right Pulses: Gunner Ped=1, Femoral=1 Left Pulses: Gunner Ped=1, Femoral=1 15:40:15 Lower Right Extremities: Color=Normal Lower Left Extremities: Color=Normal Neurological: State=Alert, Ox3, OBANDO Respiration: Resp=21 B/min, SpO2=98 % 15:43:21 Table restraints applied according to hospital policy 15:47:51 MD paged 15:48:13 MD responded 15:49:03 Reference ECG taken 16:06:36 MD arrived. Time Out. Correct patient, correct procedure, correct physician, power injector loaded, or not loaded with contrast with 16:08:44 surgical team present. Time Out Concurred by MD and individual staff in procedure. 16:10:49 Case Start 16:16:06 Patient arrived on 20 mL 1% XYLOCAINE in Left Groin via Subcutaneous. Ordered by Shawn Luna. 16:16:25 Vascular access was obtained in the Fem Vein (left). 16:16:29 Vascular access was obtained in the Fem Vein (left). 16:16:29 Vascular access was obtained in the Fem Vein (left). 16:16:31 A SHEATH, EPS, FR5 FAST CATH FR 5 was advanced into the Fem Vein (left) using the Modified Seldinger technique. 16:16:39 A SHEATH, EPS, FR5 FAST CATH FR 5 was advanced into the Fem Vein (left) using the Modified Seldinger technique. 16:16:43 A SHEATH, EPS, FR5 FAST CATH FR 5 was advanced into the Fem Vein (left) using the Modified Seldinger technique. 16:16:47 20 mL 1% XYLOCAINE given in lab by Tonny Luna in Right Groin via Subcutaneous. Ordered b y Tonny Luna. 16:17:03 Vascular access was obtained in the Fem Vein (right). 16:17:10 Vascular access was obtained in the Fem Vein (right). 16:17:12 A SHEATH, EPS, FR6 FAST CATH FR 6 was advanced into the Fem Vein (right) using the Modified Seldinger technique. 16:17:21 A SHEATH, EPS, FR8 FAST CATH FR 8 was advanced into the Fem Vein (right) using the Modified Seldinger technique. A CATHETER, JSN, QUAD FR 5 was advanced vis Fem Vein (right) and placed in the CS. Placement wa s visually 16:17:27 confirmed under fluoroscopy. A CATHETER, JSN, QUAD FR 5 was advanced vis Fem Vein (left) and placed in the HIS. Placement wa s visually 16:17:40 confirmed under fluoroscopy. A CATHETER, JSN, QUAD FR 5 was advanced vis Fem Vein (left) and placed in the HRA. Placement wa s visually 16:17:47 confirmed under fluoroscopy. A CATHETER, JSN, QUAD FR 5 was advanced vis Fem Vein (left) and placed in the RVA. Placement wa s visually 16:17:55 confirmed under fluoroscopy. 16:20:37 EP STUDY IN PROGRESS 4 mcg/min ISUPREL given in lab by Anesthesia, LEAD QUALITY TECHNICIAN via Peripheral IV. Pump/Drip Flow = 60 ml/hr using NaCl .9 with 16:26:00 a concentration of 1 mg in 250 ml. Ordered by Tonny Luna. A CATHETER, CELSIUS, 4MM, D TYPE QUAD FR 7 was advanced vis Fem Vein (right) and placed in the Isthmus. 16:28:15 Placement was visually confirmed under fluoroscopy. 16:28:55 RF Ablation of the Isthmus with a CATHETER, CELSIUS, 4MM, D TYPE QUAD FR 7. 4 mcg/min ISUPREL given in lab by Anesthesia, LEAD QUALITY TECHNICIAN via Peripheral IV. Pump/Drip Flow = 60 ml/h r using NaCl .9 with 16:45:10 a concentration of 1 mg in 250 ml. Ordered by Tonny Luna. 16:47:05 Reference ECG taken 16:54:15 Case End 16:55:54 Sheaths removed; pressure applied to access site. 17:02:45 Sterile dressing applied to site 17:02:46 No case complications noted. 17:02:47 Cine recording checked. 17:02:47 Bedside Report will be given. 17:02:51 CIC called. Spoke to ALEJO 17:04:59 Defibrillator and ground pads removed. Skin intact. 17:08:05 Patient moved to stretcher 17:38:34 Ablation procedure performed: SVT. 17:38:42 EP Procedure was performed. End Study - Contrast Media Used In Study Contrast Total Opened (mL) Total Used (mL) Total Wasted (mL) Unspecified 0 0 0 End Study - Radiation Exposure Fluoro Time (minutes) 2.7 End Study - Patient Disposition Complications Transferred To Interventional Outcome No Telemetry Bed successful
[2016-12-24] MEDS ORDERED: LORazepam 2 MG/ML VIAL IV PUSH PRN (17:15)
[2016-12-24] MEDS ORDERED: LIDOCAINE HCL 1% 50 ML VIAL INFIL PRN (17:15)
[2016-12-24] MEDS ORDERED: ATROPINE SULFATE 1 MG/ML VIAL IV PUSH PRN (17:15)
[2016-12-24] MEDS ORDERED: BACITRACIN OINT 0.9 GM PKT TOP ONE (17:15)
[2016-12-24] MEDS ORDERED: ONDANSETRON HCL 4 MG/2 ML VIAL IV PUSH PRN (17:15)
[2016-12-24] MEDS ORDERED: SODIUM CHLOR 0.9% 250 ML INJ 250 ML IV PRN (17:15)
[2016-12-24] MEDS ORDERED: METOCLOPRAMIDE HCL 10 MG/2 ML VIAL IV PUSH PRN (17:15)
[2016-12-24] MEDS ORDERED: oxyCODONE/ACETAMINOPHEN 5 MG/325 MG TAB PO PRN ×2 (17:15)
--- NOTE | 2016-12-24 18:01 | MA ---
cc: EDDIE BECERRIL M.D., JAMES G. 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 INDICATION Mr. Chauhan is a 66-year-old gentleman with history of supraventricular tachyarrhythmia. Multiple hospitalizations, ER visits, who will undergo electrophysiology study and ablation. The risks, the nature and the benefit of the procedure are clearly stated to him. The risks include pneumothorax, cardiac perforation, stroke, need for open heart surgery and even . The patient understood and agreed to proceed. PROCEDURE DETAILS After written informed consent was obtained, the patient was brought to the EP lab where he was prepped and draped in the usual sterile fashion. Conscious sedation was initiated and maintained throughout the procedure by anesthesiologist. Once sedation verified, the right and left inguinal areas were anesthetized with 2% Xylocaine. Using modified Seldinger technique, the left femoral vein was cannulated on three occasions and three guidewires were advanced. Over the wire two 5-[place]izen [place] Hemaquets were advanced. Then the right femoral vein was cannulated on two occasions and two guidewires were advanced. Over the wire a 6 and an 8-[place]izen [place] Hemaquet were advanced. Then under fluoroscopic guidance through the 5 and 6 [place] Hemaquets, four 5-[place] Cristino curved quadripolar electrophysiology catheters were advanced and positioned along His, upper right atrium, coronary sinus and right ventricular apex. Basic interval was measured. They were within normal limits. At this point atrial pacing protocol was performed. Atrial pacing protocol consisted of incremental atrial pacing as well as programmed stimulation with 1400 cycle length and up to 2 excess stimuli delivered. During atrial pacing protocol echo beat and also supraventricular tachyarrhythmia with intracardiac characteristic of AV emmanuelle reentrant tachycardia was induced. It was pace terminated. Then ventricular pacing protocol was performed. There was VA conduction, it was concentric. No tachyarrhythmia was induced during ventricular pacing protocol. At this point I decided to proceed with ablation. Through the 8 [place] Hemaquet, a [place] D curve 4 mm mapping radiofrequency ablation catheter was advanced. Using [employer] endocardial solution mapping system a three-dimensional configuration of the right atrium was obtained. Then the catheter was placed at the critical isthmus when observed radiofrequency energy was delivered. Multiple junctional beats observed. Further burn was delivered in the area. Then atrial pacing protocol was repeated again. No echo beat observed. Wenckebach this time was around 420 milliseconds. Previous to that it was around 310 milliseconds. Then Isuprel infusion was initiated. Atrial and ventricular pacing protocol was repeated again. No tachyarrhythmia was induced. Post Isuprel no tachyarrhythmia was induced. At that point procedure was complete. All catheters and Hemaquets were removed. The patient going to be transferred to the recovery room. No incident to report. The patient tolerated procedure. Blood loss minimal. 1. Electrocardiogram. At baseline the patient was in sinus. Postprocedure electrocardiogram was unchanged. 2. Basic interval. base cycle length was around 900 milliseconds. AH was 90 and HV was around 60 milliseconds. 3. Atrial pacing protocol. Wenckebach of the node was around 310 milliseconds at baseline. Post ablation it was around 420 milliseconds. 4. Ventricular pacing protocol. There was VA conduction. No tachyarrhythmia was induced. 5. Tachyarrhythmia. 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 was mapped and ablated. Ablation was successful. 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 COMMENT AND RECOMMENDATIONS The patient going to be transferred to recovery room. Will be observed, when stable can be discharged home. MD LEANNA Viramontes/CESAR /4:58 PM /5:35 PM
[2016-12-24] MEDS: ATORVASTATIN 40 MG TAB PO SCH (21:05)
[2016-12-25] VITALS (11 sets, daily range): BP systolic 105–129; BP diastolic 60–74; PULSE 56–86; RESP 16; TEMP 98.1–98.4; O2SAT 96
[2016-12-25 07:05] LABS: APTT (PATIENT) 26.4 SEC (24.3-30.1); INTERNATIONAL NORMALIZED RATIO 1.1 RATIO; PROTHROMBIN TIME - PATIENT 11.7 SEC (9.8-11.6)
--- NOTE | 2016-12-25 07:51 | PD.CARD.PN ---
Subjective Subjective Remarks Feels okay Objective Medications Current Medications Medications (Trade) Dose Ordered Sig/Nitin Route Start Time Stop Time Status Last Admin (Hydrodiuril) 25 mg DAILY PO 12/23/16 09:00 12/24/16 08:44 (Lopressor) 50 mg DAILY PO 12/23/16 09:00 12/24/16 08:44 (Flomax) 0.4 mg BID PO 12/22/16 21:00 12/24/16 21:05 (Prinivil) 40 mg DAILY PO 12/23/16 09:00 12/24/16 08:44 (NS Flush) 2 ml UNSCH PRN IV FLUSH 12/22/16 18:15 (NS Flush) 2 ml BID IV FLUSH 12/22/16 21:00 12/24/16 21:05 (Tylenol) 650 mg Q4H PRN PO 12/22/16 18:15 (Narcan Inj) 0.4 mg UNSCH PRN IV PUSH 12/22/16 18:15 (Sveta-Colace) 1 tab BID PO 12/22/16 21:00 12/24/16 08:43 (Milk Of Magnesia Liq) 30 ml Q12H PRN PO 12/22/16 18:15 (Senokot) 17.2 mg Q12H PRN PO 12/22/16 18:15 (Dulcolax Supp) 10 mg DAILY PRN RECTAL 12/22/16 18:15 (Catapres) 0.1 mg Q6H PRN PO 12/22/16 18:15 (Norvasc) 5 mg DAILY PO 12/23/16 09:00 12/24/16 08:43 (Lipitor) 40 mg HS PO 12/23/16 12:00 12/24/16 21:05 (Aspirin) 325 mg DAILY PO 12/24/16 17:00 (Percocet 5-325 Mg) 1 tab Q4H PRN PO 12/23/16 13:30 Miscellaneous Information Patient in critical care unit? Ass... [id number] .XX 12/23/16 17:30 (Chlorhexidine 2% Cloth) 3 pack DAILY@04 TOPICAL 12/24/16 04:00 12/28/16 04:01 (Chlorhexidine 2% Cloth) 3 pack UNSCH PRN TOPICAL 12/23/16 17:30 12/28/16 17:18 (Percocet 5-325 Mg) 1 tab Q4H PRN PO 12/24/16 17:15 (Percocet 5-325 Mg) 2 tab Q4H PRN PO 12/24/16 17:15 (Ativan Inj) 0.5 mg UNSCH PRN IV PUSH 12/24/16 17:15 12/25/16 17:14 (Atropine Inj) 0.5 mg UNSCH PRN IV PUSH 12/24/16 17:15 Sodium Chloride 250 ml @ 500 mls/hr ONCE PRN IV 12/24/16 17:15 12/25/16 17:14 (Reglan Inj) 10 mg Q4H PRN IV PUSH 12/24/16 17:15 (Zofran Inj) 4 mg Q4H PRN IV PUSH 12/24/16 17:15 (Xylocaine 1% Inj (50 ml)) 10 ml UNSCH PRN INFIL 12/24/16 17:15 12/25/16 17:14 Vital Signs / I&O Vital Signs Date Time Temp Pulse Resp B/P (MAP) Pulse Ox O2 Delivery O2 Flow Rate FiO2 12/25/16 06:00 62 12/25/16 05:00 74 12/25/16 04:00 58 12/25/16 03:00 98.1 63 16 105/60 (75) 96 12/25/16 03:00 63 12/25/16 01:00 61 12/25/16 00:00 70 12/24/16 23:00 56 12/24/16 23:00 98.5 70 16 103/56 (72) 95 12/24/16 22:00 60 12/24/16 21:03 97 12/24/16 21:00 62 12/24/16 19:00 98.6 62 16 122/75 (91) 98 12/24/16 19:00 62 12/24/16 18:02 63 12/24/16 17:15 61 12/24/16 15:00 98.6 65 16 168/90 (116) 98 12/24/16 14:00 69 12/24/16 13:30 65 12/24/16 12:00 98.2 64 17 164/87 (112) 96 12/24/16 12:00 64 12/24/16 10:00 64 12/24/16 08:00 63 12/24/16 08:00 98.0 63 17 144/80 101 97 I/O 12/24/16 12/24/16 12/24/16 12/25/16 12/25/16 12/25/16 07:00 15:00 23:00 07:00 15:00 23:00 Intake Total 0 ml 25 ml 360 ml 240 ml Output Total 1200 ml 875 ml 200 ml 700 ml Balance -1200 ml -850 ml 160 ml -460 ml Intake Oral 25 ml 360 ml 240 ml IV Total 0 ml Output Urine Total 1200 ml 875 ml 200 ml 700 ml # Voids 3 # Bowel Movements 0 0 0 Physical Exam GENERAL: Well-nourished, well-developed patient. SKIN: Warm and dry. Groin site soft without bruising or bleeding. HEAD: Normocephalic. EYES: No scleral icterus. No injection or drainage. NECK: Supple, trachea midline. No JVD or lymphadenopathy. CARDIOVASCULAR: Regular rate and rhythm without murmurs, gallops, or rubs. RESPIRATORY: Breath sounds equal bilaterally. No accessory muscle use. GASTROINTESTINAL: Abdomen soft, non-tender, nondistended. EXTREMITIES: No cyanosis, or edema. NEUROLOGICAL: Awake, alert, and oriented x 3. Non-focal. Laboratory Laboratory Tests Test 12/25/16 05:51 Prothrombin Time 11.7 SEC Prothromb Time International Ratio 1.1 RATIO Activated Partial Thromboplast Time 26.4 SEC Assessment and Plan Problem List: (1) SVT (supraventricular tachycardia) ICD Codes: I47.1 - Supraventricular tachycardia Status: Acute Plan: Sinus rhythm, stable status post ablation. Groin sites stable. Okay to discharge home from EP standpoint when cleared by managing team. Follow-up with Renuka in 3 weeks per my discussion with him. Sarah Grant Dec 25, 2016 07:51
[2016-12-25] MEDS: amLODIPine BESYLATE 5 MG TAB PO SCH (08:37)
[2016-12-25] MEDS: HYDROCHLOROTHIAZIDE 25 MG TAB PO SCH (08:38)
[2016-12-25] MEDS: LISINOPRIL 20 MG TAB PO SCH (08:38)
[2016-12-25] MEDS: METOPROLOL TARTRATE 50 MG TAB PO SCH (08:38)
[2016-12-25] MEDS: TAMSULOSIN HCL 0.4 MG CAP PO SCH (08:38)
[2016-12-25] MEDS: DOCUSATE SODIUM 50 MG/SENNA 8.6 MG TAB PO SCH (08:39)
[2016-12-25] MEDS: SODIUM CHLORIDE 0.9% FLUSH 10 ML FLUSH IV FLUSH SCH (08:39)
[2016-12-25] MEDS: ASPIRIN 325 MG TAB PO SCH (08:39)
--- NOTE | 2016-12-25 09:29 | HHI.PR ---
Subjective Remarks Follow-up supraventricular tachycardia arrhythmia 12/24/16-patient seen and examined, denies any chest pain or shortness of breath. Currently nothing by mouth pending EP study with possible ablation today. 12/25/16-patient seen and examined, he status post EPS with cardiac ablation . Patient denies any chest pain, shortness of breath. Objective Vitals Vital Signs Date Time Temp Pulse Resp B/P (MAP) Pulse Ox O2 Delivery O2 Flow Rate FiO2 12/25/16 09:00 70 12/25/16 08:01 86 12/25/16 07:30 98.4 56 16 129/74 (92) 96 12/25/16 07:06 59 12/25/16 06:00 62 12/25/16 05:00 74 12/25/16 04:00 58 12/25/16 03:00 98.1 63 16 105/60 (75) 96 12/25/16 03:00 63 12/25/16 01:00 61 12/25/16 00:00 70 12/24/16 23:00 56 12/24/16 23:00 98.5 70 16 103/56 (72) 95 12/24/16 22:00 60 12/24/16 21:03 97 12/24/16 21:00 62 12/24/16 19:00 98.6 62 16 122/75 (91) 98 12/24/16 19:00 62 12/24/16 18:02 63 12/24/16 17:15 61 12/24/16 15:00 98.6 65 16 168/90 (116) 98 12/24/16 14:00 69 12/24/16 13:30 65 12/24/16 12:00 98.2 64 17 164/87 (112) 96 12/24/16 12:00 64 12/24/16 10:00 64 I/O 12/24/16 12/24/16 12/24/16 12/25/16 12/25/16 12/25/16 07:00 15:00 23:00 07:00 15:00 23:00 Intake Total 0 ml 25 ml 360 ml 240 ml Output Total 1200 ml 875 ml 200 ml 700 ml Balance -1200 ml -850 ml 160 ml -460 ml Intake Oral 25 ml 360 ml 240 ml IV Total 0 ml Output Urine Total 1200 ml 875 ml 200 ml 700 ml # Voids 3 # Bowel Movements 0 0 0 Result Diagram: 12/24/16 0507 12/24/16 0504 Imaging Last Impressions Chest X-Ray 12/22/16 1637 Signed Impressions: Service Date/Time: Thursday, December 22, 2016 16:48 - CONCLUSION: No acute cardiopulmonary abnormality is identified. Michael Daley MD Objective Remarks GENERAL: NAD SKIN: Warm and dry. HEAD: Normocephalic. EYES: No scleral icterus. No injection or drainage. NECK: Supple, trachea midline. No JVD or lymphadenopathy. CARDIOVASCULAR: Regular rate and rhythm without murmurs, gallops, or rubs. RESPIRATORY: Breath sounds equal bilaterally. No accessory muscle use. GASTROINTESTINAL: Abdomen soft, non-tender, nondistended. MUSCULOSKELETAL: No cyanosis, or edema. BACK: Nontender without obvious deformity. No CVA tenderness. Procedures EPS with cardiac ablation 12/24/16 A/P Problem List: (1) Hyperlipidemia ICD Code: E78.5 - Hyperlipidemia, unspecified (2) SVT (supraventricular tachycardia) ICD Code: I47.1 - Supraventricular tachycardia Status: Acute (3) Renal insufficiency ICD Code: N28.9 - Disorder of kidney and ureter, unspecified Status: Acute Assessment and Plan 66-year-old man with Coronary artery disease Supraventricular tachyarrhythmia-resolved Status post left heart catheterization by cardiology Seen by pipe tester and s/p EPS with cardiac ablation 12/24/16 Continue with current cardiac monitoring Continue with aspirin 325 mg daily, Lipitor 40 mg at bedtime, JARED inhibitor Hypertension Currently on Norvasc 5 mg daily, Advil INDIGO 25 mg daily, lisinopril 40 mg daily Hyperlipidemia Continue with Lipitor 40 mg at bedtime BPH On Flomax Hypokalemia Give potassium 60 mEq 1 now Jordy Lim MD Dec 25, 2016 09:29
[2016-12-25] MEDS ORDERED: AMLO5 PO (09:31)
[2016-12-25] MEDS ORDERED: ASPI325T PO (09:31)
[2016-12-25] MEDS ORDERED: ATOR40TA16 PO (09:31)
--- NOTE | 2016-12-25 09:35 | HHI.DS ---
Discharge Summary Admission Date Dec 24, 2016 at 09:36 Discharge Date: Dec 25, 2016 Admitting Diagnosis SVT, renal insuffiency (1) Hyperlipidemia ICD Code: E78.5 - Hyperlipidemia, unspecified (2) SVT (supraventricular tachycardia) ICD Code: I47.1 - Supraventricular tachycardia Status: Acute (3) Renal insufficiency ICD Code: N28.9 - Disorder of kidney and ureter, unspecified Status: Acute Procedures EPS with cardiac ablation 12/24/16 Brief History - From Admission 66 years old Mediterranean [place] male with history of hypertension hyperlipidemia SVT presented to the ED with an episode of palpitation and lightheadedness but no chest pain no short of breath, patient stated he was resting the whole day and also in his heart start racing. Symptoms started 3 PM this afternoon. She reported he was seen in ER last week for the same problem he was given 2 rounds of adenosine. At that time patient left AMA and did not stay for admission. Patient did follow up with his electronics scale tester Dr. mejia and was planned to see him tomorrow for a Holter monitor. She has stated he had 2-D echo 3 weeks ago which only showed dilated ascending aorta. Currently patient is chest pain-free no palpitation heart rate is controlled he was given 2 doses of adenosine in ED CBC/BMP: 12/24/16 0507 12/24/16 0504 Significant Findings Laboratory Tests Test 12/22/16 16:40 12/22/16 22:13 12/23/16 04:23 12/23/16 15:00 Blood Urea Nitrogen 28 MG/DL (7-18) 33 MG/DL (7-18) Creatinine 1.70 MG/DL (0.60-1.30) Random Glucose 109 MG/DL (74-106) Magnesium Level 2.7 MG/DL (1.5-2.5) Estimat Glomerular Filtration Rate 41 ML/MIN (>89) 61 ML/MIN (>89) Troponin I 0.08 NG/ML (0.02-0.05) 0.79 NG/ML (0.02-0.05) 0.67 NG/ML (0.02-0.05) Red Blood Count 4.42 MIL/MM3 (4.50-5.90) Monocytes (%) (Auto) 9.8 % (0.0-8.0) Calcium Level 8.3 MG/DL (8.5-10.1) Test 12/24/16 05:04 12/24/16 05:07 12/25/16 05:51 Blood Urea Nitrogen 21 MG/DL (7-18) Potassium Level 3.4 MEQ/L (3.5-5.1) Estimat Glomerular Filtration Rate 68 ML/MIN (>89) Monocytes (%) (Auto) 8.1 % (0.0-8.0) Prothrombin Time 11.7 SEC (9.8-11.6) Imaging Last Impressions Chest X-Ray 12/22/16 1637 Signed Impressions: Service Date/Time: Thursday, December 22, 2016 16:48 - CONCLUSION: No acute cardiopulmonary abnormality is identified. Michael Daley MD PE at Discharge GENERAL: NAD SKIN: Warm and dry. HEAD: Normocephalic. EYES: No scleral icterus. No injection or drainage. NECK: Supple, trachea midline. No JVD or lymphadenopathy. CARDIOVASCULAR: Regular rate and rhythm without murmurs, gallops, or rubs. RESPIRATORY: Breath sounds equal bilaterally. No accessory muscle use. GASTROINTESTINAL: Abdomen soft, non-tender, nondistended. MUSCULOSKELETAL: No cyanosis, or edema. BACK: Nontender without obvious deformity. No CVA tenderness. Hospital Course Patient admitted secondary to SVT for which cardiology was consulted and underwent left heart catheterization, followed by EPS with cardiac ablation. Patient's symptoms resolved and he was continued on his medication for hypertension as well as hyperlipidemia. All electrolyte abnormalities were corrected accordingly including hypokalemia. DVT and GI prophylaxis were provided. Prior to discharge, patient's condition improve and vitals remained stable. Pt Condition on Discharge: Stable Discharge Disposition: Discharge Home Discharge Time: <= 30 minutes Discharge Instructions DIET: Follow Instructions for: Heart Healthy Diet Activities you can perform: Regular-No Restrictions Follow up Referrals: Cardiology PCP Follow-up - 1 Week New Medications: Amlodipine (Norvasc) 5 Mg Tab 5 MG PO DAILY for Blood Pressure Management, #30 TAB 3 Refills Aspirin (Aspirin) 325 Mg Tab 325 MG PO DAILY for Prevent Blood Clot, #30 TAB 3 Refills Atorvastatin (Atorvastatin) 40 Mg Tab 40 MG PO HS for Cholesterol Management, #30 TAB 3 Refills Continued Medications: Dutasteride (Dutasteride) 0.5 Mg Cap 0.5 MG PO DAILY for Manage Prostate Problems, #30 CAP 0 Refills Hydrochlorothiazide (Hydrochlorothiazide) 25 Mg Tab 25 MG PO DAILY, #30 TAB 0 Refills Lisinopril (Lisinopril) 40 Mg Tab 40 MG PO DAILY for Blood Pressure Management, #30 TAB 0 Refills Metoprolol Tartrate (Metoprolol Tartrate) 50 Mg Tab 50 MG PO DAILY, #30 TAB 0 Refills Tamsulosin (Tamsulosin) 0.4 Mg Cap 0.4 MG PO BID for Manage Prostate Problems, #30 CAP 0 Refills Jordy Lim MD Dec 25, 2016 09:35
[2016-12-25] MEDS ORDERED: POTASSIUM CHLORIDE 10 MEQ CONTROLLED RELEASE TAB PO ONE (10:00)
--- NOTE | 2016-12-25 11:32 | EKG ---
Date Performed: 12/25/2016 Time Performed: 05:23:34 PTAGE: 66 years EKG: Possible ectopic atrial rhythm Possible septal infarct - age undetermined Inferior T wave c hanges are nonspecific Abnormal ECG Compared to prior tracing no significant change PREVIOUS TRACING : 12/23/2016 04.36 DOCTOR: Arash Galloway Interpretating Date/Time 12/25/2016 11:28:34
--- NOTE | 2016-12-26 18:13 | PQ ---
Physician Query Response Document PATIENT: MISTI KENT : 1950 ADMIT DATE: 12/24/2016 9:36 AM DISCH DATE: 12/25/2016 10:34 AM RESPONDING PROVIDER #: Danny QUERY TEXT: Clarification of Clinical Diagnostic Findings Please clarify documentation or clinical relevance for the clinical / diagnostic findings or whether those are insignificant or unable to be further specified. WAS nstemi 1)rulled in 2)rulled out 3)unknown 4)other(please specify) The patient's Clinical Indicators include: Dr. LIM, please Clarify. Patients troponins went from 0.08-0.79-0.67. 12-24 Cardiology progress note documents "NSTEMI-demand mediated" Attending does not mention NSTEMI in discharge summary. Please review the question below and answer to the best of your ability THANK YOU Query created by: Boubacar Parham on 12/26/2016 8:27 AM RESPONSE TEXT: NSTEMI ruled out. ASC was not the reason for elevated troponin levels Electronically signed by: Jordy Lim MD 12/26/2016 6:09 PM
== END 2016-12-25 10:34 | disposition home or self-care (01) | DRG 274 ==
LOC: PHED 16:25 → PHEDA 17:47 → PH3A 20:03 → HIMN 12-23 13:38 → HIME 12-23 13:45 → OBSVTOIN 12-24 09:36 → HCIN 12-24 13:28
PROVIDERS: ADMIT Hospitalist; ATTEND Hospitalist
PROC: B2111ZZ Fluoroscopy of Multiple Coronary Arteries using Low Osmolar Contrast (ICD-10-PCS; 2016-12-23)
PROC: 4A023N7 Measurement of Cardiac Sampling and Pressure, Left Heart, Percutaneous Approach (ICD-10-PCS; principal; 2016-12-23 12:15)
PROC: 02583ZZ Destruction of Conduction Mechanism, Percutaneous Approach (ICD-10-PCS; 2016-12-24)
PROC: 02K83ZZ Map Conduction Mechanism, Percutaneous Approach (ICD-10-PCS; 2016-12-24)
PROC: 4A023FZ Measurement of Cardiac Rhythm, Percutaneous Approach (ICD-10-PCS; 2016-12-24)
PROC: 4A0234Z Measurement of Cardiac Electrical Activity, Percutaneous Approach (ICD-10-PCS; 2016-12-24)
DX: I47.1 Supraventricular tachycardia (principal); N17.9 Acute kidney failure, unspecified; N18.3 Chronic kidney disease, stage 3 (moderate); I77.819 Aortic ectasia, unspecified site; I12.9 Hypertensive chronic kidney disease with stage 1 through stage 4 chronic kidney disease, or unspecified chronic kidney disease; E78.00 Pure hypercholesterolemia, unspecified; H91.92 Unspecified hearing loss, left ear; N40.0 Benign prostatic hyperplasia without lower urinary tract symptoms; Z87.891 Personal history of nicotine dependence; E86.0 Dehydration; I25.10 Atherosclerotic heart disease of native coronary artery without angina pectoris; E87.6 Hypokalemia
CPT/HCPCS: 71010; 80048; 82550; 83735; 84484; 85025; 85610; 85730; 87641; 93005; 93458; 93623; 93653; 96361; 96374; 96375; C1730; C1732; C1769; C1893; C2630; G0378; J0153; J1644; J2250; J2370; J3010; J7030; Q9967